=== PATIENT | male | born 1945 | race Caucasian/White ===

== ENCOUNTER 2017-02-27 20:34 | Emergency (ER) | payer MEDICARE, OTHER ==
[~2017-02-27] VITALS: Ht 170.2 cm; Wt 115.7 kg
[~2017-02-27 20:34] MED LIST: APIX5TAB PO; CARV12.5 PO; CITA20 PO; DILT360C12 PO; FLUT1INH; FURO20 PO; LIPI80TA16 PO; MONT10TA2 PO; MULT-65 PO; OMEG600C2 PO; POTA-267 PO; RAMI2.5C29 PO; VITA400C28 PO; WELLTAB39 PO
[2017-02-27 20:43] VITALS: BP 107/78; PULSE 100; RESP 16; TEMP 98.2; O2SAT 95
[2017-02-27] MEDS ORDERED: ATOR1TAB18 PO (21:05)
[2017-02-27] MEDS ORDERED: APIX5TAB PO (21:05)
[2017-02-27] MEDS ORDERED: WELLTAB39 PO (21:06)
[2017-02-27] MEDS ORDERED: CARV12.52 PO (21:07)
[2017-02-27] MEDS ORDERED: VITA100064 PO (21:07)
[2017-02-27] MEDS ORDERED: CITA20TA4 PO (21:08)
[2017-02-27] MEDS ORDERED: MONT10TA2 PO (21:09)
[2017-02-27] MEDS ORDERED: FURO1TAB62 PO (21:09)
[2017-02-27] MEDS ORDERED: DILT-48 PO (21:09)
[2017-02-27] MEDS ORDERED: MULTTAB12 PO (21:10)
[2017-02-27] MEDS ORDERED: POTA-163 PO (21:11)
[2017-02-27] MEDS ORDERED: OMEGCAP PO (21:11)
[2017-02-27] MEDS ORDERED: RAMI2.5C PO (21:12)
[2017-02-27] MEDS ORDERED: VENTAER INH (21:13)
[2017-02-27] MEDS ORDERED: ACETAMINOPHEN/HYDROcodone 325 MG/5 MG TAB PO ONE (21:15)
--- NOTE | 2017-02-27 21:27 | PD ---
HPI Chief Complaint: Injury Time Seen by Provider: 21:00 Travel History International Travel<30 days: Yes Contact w/Intl Traveler<30days: Yes Name of Country Traveled to: [place] Traveled to known affect area: No History of Present Illness HPI 71-year-old male complains of left knee pain. A wooden slab on a porch broke and he stepped through it and then a very heavy flowerpot when he at least 40 pounds fell onto the right medial knee causing pain. He was initially ambulatory. Ice was minimally helpful. He abraded the left forearm proximally along the ulnar aspect as well as the medial aspect of the left knee. The abrasions were irrigated at home. He reports the pain did not get better after icing and rest and he therefore came to the ER. No other injury to report. PFSH Past Medical History Hx Anticoagulant Therapy: Yes Asthma: Yes Atrial Fibrillation: Yes Anxiety: No Depression: Yes Cancer: No Cardiovascular Problems: Yes High Cholesterol: Yes COPD: Yes Endocrine: No Hypertension: Yes Immune Disorder: No Psychiatric: Yes Respiratory: Yes Tetanus Vaccination: < 5 Years Influenza Vaccination: Yes Past Surgical History Tonsillectomy: Yes Social History Alcohol Use: Yes (5 DRINKS WEEKLY) Tobacco Use: No Substance Use: No Allergies-Medications (Allergen,Severity, Reaction): Coded Allergies: No Known Allergies (Unverified , 02/10/15) Reported Meds & Prescriptions Reported Meds & Active Scripts Active Reported Ventolin Hfa 18 GM Inh (Albuterol Sulfate) 90 Mcg/Act Aer 2 Puff INH Q4H PRN Ramipril 2.5 Mg Cap 2.5 Mg PO DAILY Potassium Chloride ER (Potassium Chloride) 20 Meq Tab 20 Meq PO BID Burns-3 Fish Oil/Vitamin (Fish Oil-Cholecalciferol) 1,000-1,000 Mg Cap 1 Cap PO DAILY Multiple Vitamins (Multiple Vitamin) 1 Tab Tab 1 Tab PO DAILY Singulair (Montelukast Sodium) 10 Mg Tab 10 Mg PO HS Lasix (Furosemide) 20 Mg Tab 20 Mg PO DAILY Diltiazem ER 24 HR 240 Mg Caper 240 Mg PO DAILY Citalopram (Citalopram Hydrobromide) 20 Mg Tab 20 Mg PO DAILY Vitamin D (Cholecalciferol) 1,000 Unit Tab 2,000 Units PO DAILY Carvedilol 12.5 Mg Tab 12.5 Mg PO BID Wellbutrin Xl 24 HR (Bupropion HCl) 300 Mg Tab 300 Mg PO DAILY Atorvastatin (Atorvastatin Calcium) 80 Mg Tab 80 Mg PO HS Eliquis (Apixaban) 5 Mg Tab 5 Mg PO BID Review of Systems Except as stated in HPI: all other systems reviewed are Neg Physical Exam Narrative GENERAL: 71 yo M, WNWD, pleasant SKIN: Warm and dry. 1cm x 1cm abrasion L forearm proximally along ulnar aspect. Approx 3cm x 7 cm abrasion L medial knee. HEAD: Atraumatic. Normocephalic. EYES: Pupils equal and round. No scleral icterus. No injection or drainage. ENT: No nasal bleeding or discharge. Mucous membranes pink and moist. NECK: Trachea midline. No JVD. CARDIOVASCULAR: Regular rate and rhythm. RESPIRATORY: No accessory muscle use. Clear to auscultation. Breath sounds equal bilaterally. GASTROINTESTINAL: Abdomen soft, non-tender, nondistended. Hepatic and splenic margins not palpable. MUSCULOSKELETAL: Extremities without clubbing, cyanosis, or edema. TTP medial L knee. Minimal pain with ROM of L knee. 2+ DP bilaterally. NEUROLOGICAL: Awake and alert. No obvious cranial nerve deficits. Motor grossly within normal limits. Five out of 5 muscle strength in the arms and legs. Normal speech. PSYCHIATRIC: Appropriate mood and affect; insight and judgment normal. Data Data Last Documented VS Vital Signs Date Time Temp Pulse Resp B/P Pulse Ox O2 Delivery O2 Flow Rate FiO2 02/27/17 21:39 86 20 132/69 95 Room Air 02/27/17 20:43 98.2 VS reviewed Orders Knee, Complete (4vws) (02/27/17 21:06) Ice/Cold Pack (02/27/17 21:06) Splint Or Brace Apply/Monitor (02/27/17 21:06) Acetamin-Hydrocod 325-5 Mg (Lawrence 5-325 (02/27/17 21:15) MDM Medical Decision Making Medical Screen Exam Complete: Yes Emergency Medical Condition: Yes Medical Record Reviewed: Yes Differential Diagnosis effusion, fracture, dislocation Narrative Course Plain film right knee: no acute fracture The patient is resting comfortably and feels better, is alert and in no distress. The patients results and examination findings were discussed. The repeat examination is unremarkable and benign. The history, exam, diagnostic testing, and current condition do not suggest any significant pathology to warrant further testing, continued ED treatment, admission, or surgical evaluation at this point. The vital signs have been stable. The patient does not have uncontrollable pain, intractable vomiting, or other significant symptoms. The patient's condition is stable and appropriate for discharge. The patient will pursue further outpatient evaluation with a primary care physician or other designated or consulting physician as indicated in the discharge instructions. The patient expressed understanding and was agreeable with this plan. Diagnosis Primary Impression: Fall Qualified Code: W19.XXXA - Fall, initial encounter Additional Impressions: Knee pain, right Qualified Code: M25.561 - Acute pain of right knee Abrasions of multiple sites Referrals: Russ Bueno MD 2 days Additional Instructions: You have a choice when it comes to health care, and we are glad that you chose [facility]. Hopefully, we have met your expectations on today's visit. You are welcome to return to [facility] at any time, as we are committed to meeting the health care needs of our community. Med/Other Pt SpecificInfo: Prescription(s) given Disposition: 01 DISCHARGE HOME Condition: Stable Chaz Schwarz MD February 27, 2017 21:27
[2017-02-27 21:39] VITALS: BP 132/69; PULSE 86; RESP 20; O2SAT 95
--- NOTE | 2017-02-27 22:03 | RADHPO ---
EXAM DATE/TIME: 02/27/2017 21:30 [facility] COMPARISON: No previous studies available for comparison. INDICATIONS : Fall. Left knee pain. MEDICAL HISTORY : None. SURGICAL HISTORY : None. ENCOUNTER: Initial ACUITY: 1 day PAIN SCORE: 6/10 LOCATION: Right lateral FINDINGS: There is moderate osteoarthritis of the medial joint compartment. No fracture or subluxation. No sign ificant joint effusion. CONCLUSION: 1. Moderate osteoarthritis of the medial joint. No acute bony abnormalities. Olaf Owens MD on February 27, 2017 at 21:59 Board Certified Radiologist. This report was verified electronically.
[2017-02-27 22:08] VITALS: RESP 18
== END 2017-02-27 22:16 | disposition home or self-care (01) ==
LOC: PHED 20:34
DX: M25.561 Pain in right knee (principal); S50.812A Abrasion of left forearm, initial encounter; S80.212A Abrasion, left knee, initial encounter; J45.909 Unspecified asthma, uncomplicated; I48.91 Unspecified atrial fibrillation; E78.00 Pure hypercholesterolemia, unspecified; J44.9 Chronic obstructive pulmonary disease, unspecified; I10 Essential (primary) hypertension; Z79.01 Long term (current) use of anticoagulants; W13.3XXA Fall through floor, initial encounter; Y93.9 Activity, unspecified; Y92.89 Other specified places as the place of occurrence of the external cause; Y99.8 Other external cause status
CPT/HCPCS: 73564; 99283; L1830

== ENCOUNTER 2018-08-28 10:39 | Inpatient (IN) ==
[2018-08-28] MEDS ORDERED: Aspirin 325 MG Tablet PO ONE (12:55)
[2018-08-28 13:12] LABS: Baso # (Auto) 0.1 th/mm3 (0.0-0.2); Baso % (Auto) 0.7 % (0.0-2.0); Eos # (Auto) 0.1 th/mm3 (0.0-0.4); Eos % (Auto) 1.4 % (0.0-4.0); Hematocrit 44.3 % (39.0-51.0); Hemoglobin 14.6 gm/dL (13.0-17.0); Lymph # (Auto) 1.9 th/mm3 (1.0-4.8); Lymph % (Auto) 19.7 % (9.0-44.0); Mean Corpuscular Hemoglobin 30.9 pg (27.0-34.0); Mean Corpuscular Volume 93.6 fL (80.0-100.0); Mean Platelet Volume 8.5 fL (7.0-11.0); Mono # (Auto) 0.8 th/mm3 (0.0-0.9); Mono % (Auto) 8.3 % (0.0-8.0); Neut # (Auto) 6.5 th/mm3 (1.8-7.7); Neut % (Auto) 69.9 % (16.0-70.0); Platelet Count 180 th/mm3 (150-450); Red Blood Count 4.74 mil/mm3 (4.50-5.90); White Blood Count 9.4 th/mm3 (4.0-11.0)
--- NOTE | 2018-08-28 13:19 | ED ---
HPI General Chief Complaint: Chest Pain Stated Complaint: chest pain Time Seen by Provider: 08/28/18 12:43 History of Present Illness HPI narrative: Patient has a history of asthma, CHF, high blood pressure, COPD, A. fib, and hyperlipidemia presents with lower left-sided chest pain. Pain started earlier this morning, intermittent, minutes in duration, similar pain in the past and he states he was diagnosed with A. fib, and the pain radiates to his neck. Reports having a dizzy spell and achy joints that feels like the flu despite having flu shot this year. He reports body aches and productive cough with clear phlegm, shortness of breath with the chest pain, he denies fever or chills or nausea or vomiting or recent travel or abdominal pain. He is on Eliquis. Related Data Home Medications Medication Instructions Recorded Confirmed Multi Vitamin 1 tab PO DAILY 05/19/18 08/28/18 albuterol sulfate [Ventolin HFA] 18 mg INHALATION PRN PRN 05/19/18 08/28/18 apixaban [Eliquis] 5 mg PO BID 05/19/18 08/28/18 atorvastatin 80 mg PO DAILY 05/19/18 08/28/18 bupropion HCl 300 mg PO QAM 05/19/18 08/28/18 carvedilol 12.5 mg PO BID 05/19/18 08/28/18 citalopram 20 mg PO DAILY 05/19/18 08/28/18 diltiazem HCl [DILT-XR] 240 mg PO DAILY 05/19/18 08/28/18 furosemide 20 mg PO DAILY 05/19/18 08/28/18 montelukast 10 mg PO QPM 05/19/18 08/28/18 omega-3 fatty acids-fish oil [Fish 2,400 mg PO DAILY 05/19/18 08/28/18 Oil] potassium chloride 20 meq PO BID 05/19/18 08/28/18 ramipril 2.5 mg PO BID 05/19/18 08/28/18 Brioellipta Inh 08/28/18 calcium citrate-vitamin D3 1 tab PO DAILY 08/28/18 08/28/18 Allergies Allergy/AdvReac Type Severity Reaction Status Date / Time No Known Allergies Allergy Verified 08/28/18 10:50 Review of Systems ROS: all other systems reviewed are negative [facility] Social History Social History Substance History: Active Abuse Smoking Status: Former smoker How Often Do You Have a Drink Containing Alcohol: 4 or more times a week Recent Travel in [facility] within the Last 8 Weeks: No Recent Out of Country Travel within the Last 8 Weeks: No Substance Abuse Detail Alcohol: Substance Use Status: Active Route Used Substance Abuse: By Mouth Substance Frequency: Mixed drinks, states usually one per night Immunization History Tetanus Immunization: <5 Years Exam Narrative Exam Narrative: GENERAL: No acute distress. SKIN: Focused skin assessment warm/dry. HEAD: Atraumatic. Normocephalic. EYES: Pupils equal and round. No scleral icterus. No injection or drainage. ENT: No nasal bleeding or discharge. Mucous membranes pink and moist. NECK: Trachea midline. No JVD. CARDIOVASCULAR: Irregularly irregular RESPIRATORY: No accessory muscle use. Clear to auscultation. Breath sounds equal bilaterally. GASTROINTESTINAL: Abdomen soft, non-tender, nondistended. Hepatic and splenic margins not palpable. MUSCULOSKELETAL: No obvious deformities. No clubbing. No cyanosis. No edema. NEUROLOGICAL: Awake and alert. No obvious cranial nerve deficits. Motor grossly within normal limits. Normal speech. PSYCHIATRIC: Appropriate mood and affect; insight and judgment normal. Course Initial Documented Vital Signs Temperature 98.7 F 08/28/18 10:46 Pulse Rate 89 08/28/18 10:46 Respiratory Rate 18 08/28/18 10:46 Blood Pressure 135/78 08/28/18 10:46 Pulse Oximetry 95 08/28/18 10:46 Last Documented Vital Signs Temperature 98.7 F 08/28/18 10:46 Pulse Rate 86 08/28/18 12:40 Respiratory Rate 16 08/28/18 12:40 Blood Pressure 140/91 H 08/28/18 12:40 Pulse Oximetry 94 L 08/28/18 12:40 Medical Decision Making MDM Narrative Medical decision making narrative: Patient presents to the emergency department reporting left-sided chest pain. Patient placed on pvc monitor, continuous pulse ox, IV access obtained. Chest x-ray, labs, EKG, aspirin 325 mg p.o. ordered. 1536: Patient's labs show slightly increase BNP. Q waves in aVF and III old per admit hospitalist. Will admit for chest pain obs. HEART score approx 6. states last stress test she thinks was January 2015. He has been admitted to hospitalist for further eval and management. Medical Screen Exam Complete: Yes Emergency Medical Condition: Yes Lab Data Result diagrams: 08/28/18 13:00 08/28/18 13:00 Lab Results 08/28/18 08/28/18 08/28/18 Range/Units 13:00 13:00 13:00 CBC w Diff Auto diff final WBC 9.4 (4.0-11.0) th/mm3 RBC 4.74 (4.50-5.90) mil/mm3 Hgb 14.6 (13.0-17.0) gm/dL Hct 44.3 (39.0-51.0) % MCV 93.6 (80.0-100.0) fL MCH 30.9 (27.0-34.0) pg MCHC 33.0 (32.0-36.0) % RDW 13.0 (11.6-17.2) % Plt Count 180 (150-450) th/mm3 MPV 8.5 (7.0-11.0) fL Neut % (Auto) 69.9 (16.0-70.0) % Lymph % (Auto) 19.7 (9.0-44.0) % Gregg % (Auto) 8.3 H (0.0-8.0) % Eos % (Auto) 1.4 (0.0-4.0) % Baso % (Auto) 0.7 (0.0-2.0) % Neut # (Auto) 6.5 (1.8-7.7) th/mm3 Lymph # (Auto) 1.9 (1.0-4.8) th/mm3 Gregg # (Auto) 0.8 (0.0-0.9) th/mm3 Eos # (Auto) 0.1 (0.0-0.4) th/mm3 Baso # (Auto) 0.1 (0.0-0.2) th/mm3 WBC Differential . Differential Comment . PT 12.0 H (9.8-11.6) sec INR 1.2 Ratio APTT 30.3 (23.4-31.7) sec Sodium 138 (136-145) meq/L Potassium 4.2 (3.5-5.1) meq/L Chloride 103 (98-107) meq/L Carbon Dioxide 28.7 (21.0-32.0) meq/L Anion Gap 6 (5-15) meq/L BUN 12 (7-18) mg/dL Creatinine 0.85 (0.60-1.30) mg/dL Estimated GFR 89 (>89) mL/min Random Glucose 169 H (74-106) mg/dL Calcium 9.1 (8.5-10.1) mg/dL Magnesium 2.0 (1.5-2.5) mg/dL Total Bilirubin 0.6 (0.2-1.0) mg/dL AST 13 L (15-37) U/L ALT 21 (12-78) U/L Alkaline Phosphatase 117 (45-117) U/L Troponin I (0.02-0.05) ng/mL B-Natriuretic Peptide (0-100) pg/mL Total Protein 7.6 (6.4-8.2) g/dL Albumin 3.1 L (3.4-5.0) g/dL 08/28/18 08/28/18 Range/Units 13:00 13:00 CBC w Diff WBC (4.0-11.0) th/mm3 RBC (4.50-5.90) mil/mm3 Hgb (13.0-17.0) gm/dL Hct (39.0-51.0) % MCV (80.0-100.0) fL MCH (27.0-34.0) pg MCHC (32.0-36.0) % RDW (11.6-17.2) % Plt Count (150-450) th/mm3 MPV (7.0-11.0) fL Neut % (Auto) (16.0-70.0) % Lymph % (Auto) (9.0-44.0) % Gregg % (Auto) (0.0-8.0) % Eos % (Auto) (0.0-4.0) % Baso % (Auto) (0.0-2.0) % Neut # (Auto) (1.8-7.7) th/mm3 Lymph # (Auto) (1.0-4.8) th/mm3 Gregg # (Auto) (0.0-0.9) th/mm3 Eos # (Auto) (0.0-0.4) th/mm3 Baso # (Auto) (0.0-0.2) th/mm3 WBC Differential Differential Comment PT (9.8-11.6) sec INR Ratio APTT (23.4-31.7) sec Sodium (136-145) meq/L Potassium (3.5-5.1) meq/L Chloride (98-107) meq/L Carbon Dioxide (21.0-32.0) meq/L Anion Gap (5-15) meq/L BUN (7-18) mg/dL Creatinine (0.60-1.30) mg/dL Estimated GFR (>89) mL/min Random Glucose (74-106) mg/dL Calcium (8.5-10.1) mg/dL Magnesium (1.5-2.5) mg/dL Total Bilirubin (0.2-1.0) mg/dL AST (15-37) U/L ALT (12-78) U/L Alkaline Phosphatase (45-117) U/L Troponin I Less than 0.02 L (0.02-0.05) ng/mL B-Natriuretic Peptide 203 H (0-100) pg/mL Total Protein (6.4-8.2) g/dL Albumin (3.4-5.0) g/dL Imaging Data Radiologist's impression: Chest X-Ray 08/28/18 12:53 CONCLUSION: Right basilar subsegmental atelectasis. ECG Data Attestation: I personally reviewed and interpreted this ECG as follows: (A. fib , rate 93, left axis deviation, QTC 433, Q wave in III and AVF (old per hospitalist as I'm unable to view)) Discharge Plan Discharge Disposition Patient Disposition: 30 Still Patient Discharge Condition Condition: Stable Discharge Details Diagnosis: Chest pain Physicians Team ED Provider: Hallie Ralph Primary Care Provider: Maday Us Rxs /Orders / Referrals /Forms Prescriptions: No Action Brioellipta Inh RF: 0 calcium citrate-vitamin D3 200 mg calcium -250 unit Tablet 1 tab PO DAILY RF: 0 atorvastatin 80 mg Tablet 80 mg PO DAILY RF: 0 carvedilol 12.5 mg Tablet 12.5 mg PO BID RF: 0 diltiazem HCl [DILT-XR] 240 mg Capsule,Ext.Rel 24h Degradable 240 mg PO DAILY RF: 0 citalopram 20 mg Tablet 20 mg PO DAILY RF: 0 ramipril 2.5 mg Capsule 2.5 mg PO BID RF: 0 montelukast 10 mg Tablet 10 mg PO QPM RF: 0 furosemide 20 mg Tablet 20 mg PO DAILY RF: 0 albuterol sulfate [Ventolin HFA] 90 mcg/actuation Hfa Aerosol Inhaler 18 mg Inhalation PRN PRN (Reason: Shortness Of Breath) RF: 0 bupropion HCl 300 mg Tablet Extended Release 24 Hr 300 mg PO QAM RF: 0 omega-3 fatty acids-fish oil [Fish Oil] 360-1,200 mg Capsule 2,400 mg PO DAILY RF: 0 apixaban [Eliquis] 5 mg Tablet 5 mg PO BID RF: 0 potassium chloride 20 mEq Tablet Extended Release 20 meq PO BID RF: 0 Multi Vitamin 1 tab PO DAILY RF: 0 Discharge Instructions Patient Printed Instructions: Chest Pain (ED) Discharge Interventions Interventions: Vital Signs Last Done: 08/28/18 12:40 Status ED Status: With Doctor
[2018-08-28 13:20] LABS: Chloride 103 meq/L (98-107); Potassium 4.2 meq/L (3.5-5.1); Sodium 138 meq/L (136-145)
--- NOTE | 2018-08-28 13:20 | XR ---
EXAM DATE: 08/28/2018 1:17 PM EST AGE/SEX: 73 years / Male INDICATIONS: Cough and chest pains. CLINICAL DATA: This is the patient's initial encounter. Patient reports that signs and symptoms have been present for 3 days and indicates a pain score of 7/10. MEDICAL/SURGICAL HISTORY: Hypertension. Chronic obstructive pulmonary disease. Congestive hea rt failure. Afib. None. COMPARISON: [facility], CHEST SINGLE AP, 02/10/2015. . FINDINGS: A single AP view of the chest demonstrates right basilar linear density without evidence of mass, inf iltrate or effusion. The cardiomediastinal contours are unremarkable. Osseous structures are intact . CONCLUSION: Right basilar subsegmental atelectasis. Electronically signed by: Bj Ford MD 08/28/2018 1:19 PM EST
[2018-08-28 13:22] LABS: Calcium 9.1 mg/dL (8.5-10.1)
[2018-08-28 13:23] LABS: Activated Partial Thrombo Time 30.3 sec (23.4-31.7); Albumin 3.1 g/dL (3.4-5.0); Anion Gap 6 meq/L (5-15); Blood Urea Nitrogen 12 mg/dL (7-18); Carbon Dioxide 28.7 meq/L (21.0-32.0); Glucose,Random 169 mg/dL (74-106); INR 1.2 Ratio
[2018-08-28 13:26] LABS: Alanine Aminotransferase 21 U/L (12-78); Aspartate Aminotransferase 13 U/L (15-37); Glomerular Filtration Rate 89 mL/min (>89)
[2018-08-28 13:28] LABS: Total Protein 7.6 g/dL (6.4-8.2)
[2018-08-28 13:29] LABS: Alkaline Phosphatase 117 U/L (45-117)
[2018-08-28] MEDS ORDERED: Acetaminophen 500 MG Tablet PO PRN (15:36)
[2018-08-28] MEDS ORDERED: Morphine Inj 4 MG/ML Vial IV.PUSH PRN (15:36)
[2018-08-28] MEDS ORDERED: Benzonatate 100 MG Capsule PO PRN (15:37)
--- NOTE | 2018-08-28 15:44 | ECG ---
Date Performed: 08/28/2018 Time Performed: 10:46:18 PTAGE: 73 years EKG: ATRIAL FIBRILLATION POSSIBLE INFERIOR MYOCARDIAL INFARCTION ABNORMAL ECG Compared to prior electrocardiogram, Atrial fibrillation has replaced Sinus rhythm . PREVIOUS TRACING : 02/10/2015 21.35 DOCTOR: Catalino Mccabe Interpretating Date/Time 08/28/2018 15:44:28
[2018-08-28 18:15] LABS: Creatine Kinase 42 U/L (39-308)
[2018-08-28] MEDS: Montelukast 10 MG Tablet PO SCH (18:22)
[2018-08-28 18:29] LABS: Bilirubin,Urine Negative (Negative); Clarity,Urine Turbid (Clear); Glucose,Urine (UA) 250 mg/dL (Negative); Leukocyte Esterase,Urine Negative (Negative); Nitrite,Urine Negative (Negative)
[2018-08-28 18:30] LABS: Color,Urine Red (Yellw/Straw)
[2018-08-28 18:33] LABS: Bacteria,Urine Few /hpf; RBC,Urine Innumerable /hpf (0-3); WBC,Urine 0-5 /hpf (0-5)
[2018-08-28] MEDS ORDERED: LORazepam 1 MG Tablet PO PRN (18:44)
[2018-08-28] MEDS ORDERED: Haloperidol Inj 5 MG/ML Ampul IV.PUSH PRN (18:44)
--- NOTE | 2018-08-28 19:00 | ECG ---
Date Performed: 08/28/2018 Time Performed: 18:17:55 PTAGE: 73 years EKG: ATRIAL FIBRILLATION WITH ABERRANT CONDUCTION OR VENTRICULAR PREMATURE COMPLEXES MARKED LEFT AXIS DEVIATION ABNORMAL ECG Compared to prior electrocardiogram, Premature ventricular contractions are now present . PREVIOUS TRACING : 08/28/2018 10.46 DOCTOR: Catalino Mccabe Interpretating Date/Time 08/28/2018 18:59:34
--- NOTE | 2018-08-28 19:05 | P.HP ---
History of Present Illness Primary Care Physician: Maday Us MD Chief Complaint: Chest pain History of Present Illness: This is a 73-year-old male with a history of asthma, COPD, congestive heart failure, hypertension, COPD, A. fib and hyperlipidemia. He presents to the emergency department because of chest pain that started this morning. He describes an intermittent moderate left-sided sharp nonexertional chest pain radiating to his neck and left lower extremity. Denies diaphoresis, nausea and palpitations. He also noted that his blood pressure was elevated which is usually under control. Patient also has been having flulike symptoms with dizzy spells, achy joints, productive cough with clear phlegm and shortness of breath with wheezing. Flu screen was negative in the ED. He reports that pain was not initially pleuritic but now it is worse when he coughs. CHEST Xray independently reviewed by me with no acute cardiopulmonary disease except for right subsegmental atelectasis. EKG independently reviewed by me with atrial fibrillation with controlled ventricular response and Q waves in 3 and aVL unchanged from previous. Initial CK and troponin unremarkable. Patient has been started on aspirin in addition to Eliquis. While in the hall, patient developed gross hematuria with no blood clots. Has pain in his penile area but no abdominal pain. Denies history of bleeding or stones. Intentional weight loss with good appetite. All other systems reviewed negative Review of Systems All other systems reviewed negative except as stated in HPI PMFSH - History History Provided By: Patient, Family Member - Medical History Medical History: Medical History (Last Reviewed 08/28/18 @ 18:59 by Michael Boucher MD) Asthma Atrial fibrillation CHF (congestive heart failure) COPD (chronic obstructive pulmonary disease) Depression Hyperlipidemia Hypertension - Surgical History Surgical History: Surgical History (Last Reviewed 08/28/18 @ 18:59 by Michael Boucher MD) Hx of tonsillectomy - Family History Family History: Family History (Last Updated 08/28/18 @ 18:59 by Michael Boucher MD) Other No pertinent family history - Social History I have reviewed the patient's Social History: Yes - Tobacco History Second Hand Smoke Exposure: No Tobacco Use In Past 30 Days: No Smoking Status: Former smoker Tobacco Type: Cigarettes - Alcohol History How Often Do You Have a Drink Containing Alcohol: 4 or more times a week - Substance Use History Substance History: No History of Abuse - Substance Use Type Alcohol Status: Active Route Used: By Mouth Frequency: Mixed drinks, states usually one per night - Travel History Recent Travel in the [place] Within the Last 8 Weeks: No Recent Travel Out of the Country Within the Last 8 Weeks: No - Immunization History Tetanus Immunization: <5 Years Hx Influenza Vaccine This Season: Yes Medications and Allergies Active Medications: Active Medications Acetaminophen (Tylenol) 500 mg PO Q4H PRN PRN Reason: HEADACHE Hydrocodone Bitart/Acetaminophen ([place] 7.5/325) 1 tab PO Q4H PRN PRN Reason: PAIN SCALE 1 TO 7 Albuterol (Ventolin Hfa Inh) 2 puff INH QID PRN PRN Reason: SHORTNESS OF BREATH/WHEEZING Atorvastatin Calcium (Lipitor) 80 mg PO DAILY NUPUR Benzonatate (Tessalon Perles) 200 mg PO Q8H PRN PRN Reason: COUGH Bupropion HCl (Wellbutrin Sr) 150 mg PO BID [facility] Carvedilol (Coreg) 12.5 mg PO BID [facility] Citalopram Hydrobromide (Celexa) 20 mg PO DAILY [facility] Enalaprilat (Vasotec Inj) 1.25 mg IV.PUSH Q6H PRN PRN Reason: SEE LABEL COMMENTS Furosemide (Lasix) 20 mg PO DAILY NUPUR Guaifenesin (Mucinex Er) 600 mg PO BID [facility] Montelukast Sodium (Singulair) 10 mg PO QPM [facility] Last Admin: 08/28/18 18:22 Dose: 10 mg Morphine Sulfate (Morphine Inj) 2 mg IV.PUSH Q4H PRN PRN Reason: PAIN SCALE 8 TO 10 Nitroglycerin (Nitrostat Sl) 0.4 mg SL Q5M PRN PRN Reason: CHEST PAIN Ondansetron HCl (Zofran Inj) 4 mg IV.PUSH Q6H PRN PRN Reason: NAUSEA Potassium Chloride (K-Dur) 20 meq PO BID NUPUR Ramipril (Altace) 2.5 mg PO BID [facility] Sodium Chloride (Ns Flush) 2 ml IV.FLUSH BID NUPUR Sodium Chloride (Ns Flush) 2 ml IV.FLUSH PRN PRN PRN Reason: FLUSH AFTER USING IV ACCESS Allergies Allergy/AdvReac Type Severity Reaction Status Date / Time No Known Allergies Allergy Verified 08/28/18 10:50 Home Medications Medication Instructions Recorded Confirmed Type Multi Vitamin 1 tab PO DAILY 05/19/18 08/28/18 History albuterol sulfate [Ventolin HFA] 18 mg INHALATION PRN PRN 05/19/18 08/28/18 History apixaban [Eliquis] 5 mg PO BID 05/19/18 08/28/18 History atorvastatin 80 mg PO DAILY 05/19/18 08/28/18 History bupropion HCl 300 mg PO QAM 05/19/18 08/28/18 History carvedilol 12.5 mg PO BID 05/19/18 08/28/18 History citalopram 20 mg PO DAILY 05/19/18 08/28/18 History diltiazem HCl [DILT-XR] 240 mg PO DAILY 05/19/18 08/28/18 History furosemide 20 mg PO DAILY 05/19/18 08/28/18 History montelukast 10 mg PO QPM 05/19/18 08/28/18 History omega-3 fatty acids-fish oil [Fish 2,400 mg PO DAILY 05/19/18 08/28/18 History Oil] potassium chloride 20 meq PO BID 05/19/18 08/28/18 History ramipril 2.5 mg PO BID 05/19/18 08/28/18 History Brioellipta Inh 08/28/18 History calcium citrate-vitamin D3 1 tab PO DAILY 08/28/18 08/28/18 History Exam Vital signs: Vital Signs 08/28/18 10:46 08/28/18 12:40 08/28/18 16:21 Temperature 98.7 F Pulse Rate 89 86 70 Respiratory Rate 18 16 Blood Pressure 135/78 140/91 H 143/91 H Pulse Oximetry 95 94 L 95 08/28/18 17:16 08/28/18 17:51 08/28/18 18:24 Temperature Pulse Rate 84 Respiratory Rate Blood Pressure 142/96 H Pulse Oximetry 96 Intake & Output 08/27/18 08/28/18 08/28/18 18:59 06:59 18:59 Weight 104.8 kg Other: Date of Last Bowel Movement 08/28/18 Weight On Admission 112.8 kg Narrative: GENERAL: Well-developed and well-nourished in no distress SKIN: Warm and dry. HEAD: Atraumatic. Normocephalic. EYES: Pupils equal and round. No scleral icterus. No injection or drainage. ENT: No nasal bleeding or discharge. Mucous membranes pink and moist. NECK: Trachea midline. No JVD. CARDIOVASCULAR: Irregularly irregular RESPIRATORY: No accessory muscle use. Scattered expiratory wheezes. Breath sounds equal bilaterally. GASTROINTESTINAL: Abdomen soft, non-tender, nondistended. no active bleed. No mass noted MUSCULOSKELETAL: Extremities without clubbing, cyanosis, or edema. No obvious deformities. No CVA tenderness NEUROLOGICAL: Awake and alert. No obvious cranial nerve deficits. Motor grossly within normal limits. Five out of 5 muscle strength in the arms and legs. Normal speech. PSYCHIATRIC: Appropriate mood and affect; insight and judgment normal. Results - Labs CBC & Chem 7: 08/28/18 13:00 08/28/18 13:00 Labs: Laboratory Results - last 24 hr 08/28/18 08/28/18 08/28/18 13:00 13:00 13:00 CBC w Diff Auto diff final WBC 9.4 RBC 4.74 Hgb 14.6 Hct 44.3 MCV 93.6 MCH 30.9 MCHC 33.0 RDW 13.0 Plt Count 180 MPV 8.5 Neut % (Auto) 69.9 Lymph % (Auto) 19.7 [place] % (Auto) 8.3 H Eos % (Auto) 1.4 Baso % (Auto) 0.7 Neut # (Auto) 6.5 Lymph # (Auto) 1.9 [place] # (Auto) 0.8 Eos # (Auto) 0.1 Baso # (Auto) 0.1 WBC Differential . Differential Comment . PT 12.0 H INR 1.2 APTT 30.3 Sodium 138 Potassium 4.2 Chloride 103 Carbon Dioxide 28.7 Anion Gap 6 BUN 12 Creatinine 0.85 Estimated GFR 89 Random Glucose 169 H Calcium 9.1 Magnesium 2.0 Total Bilirubin 0.6 AST 13 L ALT 21 Alkaline Phosphatase 117 Total Creatine Kinase Troponin I B-Natriuretic Peptide Total Protein 7.6 Albumin 3.1 L Urine Color Urine Clarity Urine pH Ur Specific [place] Urine Protein Urine Glucose (UA) Urine Ketones Urine Occult Blood Urine Nitrate Urine Bilirubin Urine Urobilinogen Ur Leukocyte Esterase Urine RBC Urine WBC Urine Bacteria Micro UA Comment Ur Microscopic Review Urine Culture Comments 08/28/18 08/28/18 08/28/18 13:00 13:00 17:30 CBC w Diff WBC RBC Hgb Hct MCV MCH MCHC RDW Plt Count MPV Neut % (Auto) Lymph % (Auto) [place] % (Auto) Eos % (Auto) Baso % (Auto) Neut # (Auto) Lymph # (Auto) [place] # (Auto) Eos # (Auto) Baso # (Auto) WBC Differential Differential Comment PT INR APTT Sodium Potassium Chloride Carbon Dioxide Anion Gap BUN Creatinine Estimated GFR Random Glucose Calcium Magnesium Total Bilirubin AST ALT Alkaline Phosphatase Total Creatine Kinase 42 Troponin I Less than 0.02 L Less than 0.02 L B-Natriuretic Peptide 203 H Total Protein Albumin Urine Color Urine Clarity Urine pH Ur Specific [place] Urine Protein Urine Glucose (UA) Urine Ketones Urine Occult Blood Urine Nitrate Urine Bilirubin Urine Urobilinogen Ur Leukocyte Esterase Urine RBC Urine WBC Urine Bacteria Micro UA Comment Ur Microscopic Review Urine Culture Comments 08/28/18 18:10 CBC w Diff WBC RBC Hgb Hct MCV MCH MCHC RDW Plt Count MPV Neut % (Auto) Lymph % (Auto) [place] % (Auto) Eos % (Auto) Baso % (Auto) Neut # (Auto) Lymph # (Auto) [place] # (Auto) Eos # (Auto) Baso # (Auto) WBC Differential Differential Comment PT INR APTT Sodium Potassium Chloride Carbon Dioxide Anion Gap BUN Creatinine Estimated GFR Random Glucose Calcium Magnesium Total Bilirubin AST ALT Alkaline Phosphatase Total Creatine Kinase Troponin I B-Natriuretic Peptide Total Protein Albumin Urine Color Red H Urine Clarity Turbid H Urine pH 7.0 Ur Specific [place] 1.020 Urine Protein 300 or greater H Urine Glucose (UA) 250 H Urine Ketones Negative Urine Occult Blood Large H Urine Nitrate Negative Urine Bilirubin Negative Urine Urobilinogen 2.0 H Ur Leukocyte Esterase Negative Urine RBC Innumerable H Urine WBC 0-5 Urine Bacteria Few H Micro UA Comment Culture not ind Ur Microscopic Review Microscopic reviewed Urine Culture Comments Culture not ind - Imaging Impressions Chest X-Ray 08/28/18 12:53 CONCLUSION: Right basilar subsegmental atelectasis. Caprini VTE Risk Assessment Caprini VTE Risk Assessment: Moderate/High Risk (score >= 2) Caprini Risk Assessment Model: Point Value = 1 Point Value = 2 Point Value = 3 Point Value = 5 Age 41-60 Minor surgery BMI > 25 kg/m2 Swollen legs Varicose veins or History of unexplained or recurrent spontaneous Oral contraceptives or hormone replacement Sepsis (< 1 month) Serious lung disease, including pneumonia (< 1 month) Abnormal pulmonary function Acute myocardial infarction Congestive heart failure (< 1 month) History of inflammatory bowel disease Medical patient at bed rest Age 61-74 Arthroscopic surgery Major open surgery (> 45 min) Laparoscopic surgery (> 45 min) Malignancy Confined to bed (> 72 hours) Immobilizing plaster cast Central venous access Age >= 75 History of VTE Family history of VTE Factor V Leiden Prothrombin 42176C Lupus anticoagulant Anticardiolipin antibodies Elevated serum homocysteine Heparin-induced thrombocytopenia Other congenital or acquired thrombophilia Stroke (< 1 month) Elective arthroplasty Hip, pelvis, or leg fracture Acute spinal cord injury (< 1 month) Prophylaxis Regimen: Total Risk Factor Score Risk Level Prophylaxis Regimen 0-1 Low Early ambulation 2 Moderate Order ONE of the following: *Sequential Compression Device (SCD) *Heparin 5000 units SQ BID 3-4 Higher Order ONE of the following medications: *Heparin 5000 units SQ TID *Enoxaparin/Lovenox 40 mg SQ daily (WT < 150 kg, CrCl > 30 mL/min) *Enoxaparin/Lovenox 30 mg SQ daily (WT < 150 kg, CrCl > 10-29 mL/min) *Enoxaparin/Lovenox 30 mg SQ BID (WT < 150 kg, CrCl > 30 mL/min) AND/OR *Sequential Compression Device (SCD) 5 or more Highest Order ONE of the following medications: *Heparin 5000 units SQ TID (Preferred with Epidurals) *Enoxaparin/Lovenox 40 mg SQ daily (WT < 150 kg, CrCl > 30 mL/min) *Enoxaparin/Lovenox 30 mg SQ daily (WT < 150 kg, CrCl > 10-29 mL/min) *Enoxaparin/Lovenox 30 mg SQ BID (WT < 150 kg, CrCl > 30 mL/min) AND *Sequential Compression Device (SCD) Assessment and Plan - Plan This is a 73-year-old male with a history of asthma, COPD, congestive heart failure, hypertension, COPD, A. fib and hyperlipidemia. Complaints of nonexertional left-sided pain. Chest x-ray with no acute cardiopulmonary disease. EKG with no ST elevation. BP mildly elevated. Patient also with expiratory wheezes with respiratory symptoms. Also developed gross hematuria on Eliquis and aspirin Chest pain, this is atypical. Will trend cardiac enzymes and obtain Lexiscan if he rules out. COPD exacerbation likely etiology of chest pain. Start scheduled nebulization, IV steroids and Levaquin. Gross hematuria on Eliquis and aspirin both on hold at this time (patient aware risk of CVA off anticoagulants). Obtain CT of the abdomen pelvis, start CBI if patient develops clots and obtain consult Uncontrolled hypertension. Continue home medications of Coreg, ramipril and Lasix. As needed Vasotec. DVT prophylaxis with SCD and early ambulation
[2018-08-28] MEDS ORDERED: Diatrizoate Meglum/Diatrizoate Sod Liq 9 ML UDC PO ONE (19:15)
[2018-08-28] MEDS: levoFLOXacin 750 MG Tablet PO SCH (19:53)
[2018-08-28] MEDS: MethylPREDNISolone Sod Succinate Inj 125 MG/2 ML Vial IV.PUSH SCH (19:54)
[2018-08-28] MEDS: Carvedilol 12.5 MG Tablet PO SCH (20:38)
[2018-08-28] MEDS: guaiFENesin 600 MG ER Tablet PO SCH (20:38)
[2018-08-28] MEDS: Ramipril 2.5 MG Capsule PO SCH (20:41)
[2018-08-28 21:25] LABS: Creatine Kinase 45 U/L (39-308)
--- NOTE | 2018-08-29 00:18 | CT ---
EXAM DATE: 08/28/2018 11:43 PM EST AGE/SEX: 73 years / Male INDICATIONS: Hematuria. CLINICAL DATA: This is the patient's initial encounter. Patient reports that signs and symptoms have been present for 1 day and indicates a pain score of 0/10. MEDICAL/SURGICAL HISTORY: Chronic obstructive pulmonary disease. Hypertension. None. ORAL CONTRAST: Prescribed oral contrast ingested. RADIATION DOSE: 21.66 CTDI (mGy) COMPARISON: No prior exams available for comparison. TECHNIQUE: Multiple contiguous axial images were obtained through the abdomen and pelvis following b olus infusion of 100 ml Omnipaque 350 (iohexol) nonionic water-soluble contrast as a single exam do se. Prescribed oral contrast ingested. Using automated exposure control and adjustment of the mA and /or kV according to patient size, radiation dose was kept as low as reasonably achievable to obtain o ptimal diagnostic quality images. DICOM format image data is available electronically for review and comparison. FINDINGS: Lower Lungs: 7 mm nodule in the posterior left costophrenic sulcus Liver: 3.4 cm mass in the posterior segment of the right lobe of the liver which looks like a meningi vahid. No other focal liver findings. No biliary ductal dilatation. Spleen: Homogeneous density without enlargement. Pancreas: Unremarkable without mass or calcification. Kidneys: 5 mm nonobstructing calculus in the lower pole collecting system of the right kidney. Small exophytic cyst arising from the posterior lateral apex of the right kidney. Left kidney is unremarka ble. Adrenal Glands: Unremarkable. Aorta: The aorta and proximal iliac vessels are grossly unremarkable without aneurysmal dilation. Bowel/Mesentery: The bowel loops are grossly unremarkable. The cecum and sigmoid colon have a normal configuration. Abdominal Wall: Small fat-containing umbilical hernia. Retroperitoneum: No evidence of adenopathy in the retrocrural, para-aortic, or deep pelvic regions. Bladder: Bladder is minimally distended. There appears to be mild bladder wall thickening, particula rly involving the left lateral aspect of the bladder and the dome of the bladder and there is mild pe rivesical inflammatory change. Reproductive Organs: Central prosthetic calcifications. Inguinal: The inguinal region is unremarkable without evidence of adenopathy. Bony Structures: Unremarkable. CONCLUSION: 1. Abnormal bladder appearance and abnormal appearance of the perivesical soft tissues. 2. 5 mm nonobstructing stone in the lower pole collecting system of the right kidney. 3. Probably benign liver lesion. Recommend further characterization with elective outpatient contras t MRI 4. Small fat-containing umbilical hernia. Electronically signed by: Michael Sanchez MD 08/29/2018 12:17 AM EST
[2018-08-29] MEDS: MethylPREDNISolone Sod Succinate Inj 125 MG/2 ML Vial IV.PUSH SCH ×4 (01:59→20:49)
--- NOTE | 2018-08-29 05:10 | ECG ---
Date Performed: 08/28/2018 Time Performed: 20:36:58 PTAGE: 73 years EKG: ATRIAL FIBRILLATION WITH RAPID VENTRICULAR RESPONSE WITH ABERRANT CONDUCTION OR VENTRICULAR PREMATURE COMPLEXES LEFT ANTERIOR FASCICULAR BLOCK INFERIOR MYOCARDIAL INFARCTION ABNORMAL ECG Eliazar red to prior electrocardiogram, Inferior WI pattern is now present. PREVIOUS TRACING : 08/28/2018 18.17 DOCTOR: Catalino Mccabe Interpretating Date/Time 08/29/2018 05:08:46
[2018-08-29] MEDS: buPROPion 150 MG 12 HR Tablet PO SCH ×2 (08:11→20:49)
[2018-08-29] MEDS: Folic Acid 1 MG Tablet PO SCH (08:11)
[2018-08-29] MEDS: Multivitamin/Minerals Therapeutic Tablet PO SCH (08:11)
[2018-08-29] MEDS: Citalopram 20 MG Tablet PO SCH (08:12)
[2018-08-29] MEDS: guaiFENesin 600 MG ER Tablet PO SCH ×2 (08:12→20:48)
[2018-08-29] MEDS: Carvedilol 12.5 MG Tablet PO SCH ×3 (08:13→20:54)
[2018-08-29] MEDS: Furosemide 20 MG Tablet PO SCH (08:13)
[2018-08-29] MEDS: Ramipril 2.5 MG Capsule PO SCH ×2 (08:50→20:49)
[2018-08-29] MEDS ORDERED: Aspirin 325 MG Tablet PO SCH (09:00)
--- NOTE | 2018-08-29 11:29 | P.CONURO ---
History of Present Illness Service: Consult date: 08/29/18 Requesting Physician: Michael Boucher Reason for Consult: Gross hematuria Primary Care Provider: Maday Us MD Chief Complaint: Chest pain History of Present Illness: 73-year-old gentleman with multiple medical problems who was admitted for further workup and management of new onset left-sided chest pain. During present hospitalization the patient developed gross painless hematuria that lasted for several voiding episodes. Patient denied any flank pain or dysuria associated with this. He denies having a history of hematuria or kidney stones in the past. He is presently on Eliquis. A CT scan study was performed that demonstrated no evidence of hydronephrosis or renal masses. A 5 mm right lower pole renal calculus along with a simple cyst of the right kidney was noted. The bladder did not demonstrate any intraluminal lesions, there was some perivesical inflammatory changes noted of indeterminate significance. At the time of consultation the patient reported that the hematuria had totally resolved and he was voiding without any difficulty. Review of Systems All other systems reviewed negative except as stated in HPI PMF - History History Provided By: Patient, Family Member - Medical History Medical History: Medical History (Last Reviewed 08/28/18 @ 18:59 by Michael Boucher MD) Asthma Atrial fibrillation CHF (congestive heart failure) COPD (chronic obstructive pulmonary disease) Depression Hyperlipidemia Hypertension - Surgical History Surgical History: Surgical History (Last Reviewed 08/28/18 @ 18:59 by Michael Boucher MD) Hx of tonsillectomy - Family History Family History: Family History (Last Updated 08/28/18 @ 18:59 by Michael Boucher MD) Other No pertinent family history - Tobacco History Second Hand Smoke Exposure: No Tobacco Use In Past 30 Days: No Smoking Status: Former smoker Tobacco Type: Cigarettes - Alcohol History How Often Do You Have a Drink Containing Alcohol: 4 or more times a week - Substance Use History Substance History: No History of Abuse - Substance Use Type Alcohol Status: Active Route Used: By Mouth Frequency: Mixed drinks, states usually one per night - Travel History Recent Travel in the [facility] Within the Last 8 Weeks: No Recent Travel Out of the Country Within the Last 8 Weeks: No - Immunization History Tetanus Immunization: <5 Years Hx Influenza Vaccine This Season: Yes Medications and Allergies Active Medications: Active Medications Acetaminophen (Tylenol) 500 mg PO Q4H PRN PRN Reason: HEADACHE Hydrocodone Bitart/Acetaminophen ([place] 7.5/325) 1 tab PO Q4H PRN PRN Reason: PAIN SCALE 1 TO 7 Albuterol (Ventolin Hfa Inh) 2 puff INH QID PRN PRN Reason: SHORTNESS OF BREATH/WHEEZING Albuterol (Albuterol Neb (Prn)) 2.5 mg NEB Q2HR NEB PRN PRN Reason: SHORTNESS OF BREATH Albuterol (Duoneb Neb ([facility])) 1 ampul NEB QID NEB [facility] Last Admin: 08/29/18 11:18 Dose: 1 ampul Atorvastatin Calcium (Lipitor) 80 mg PO DAILY [facility] Last Admin: 08/29/18 08:15 Dose: 80 mg Benzonatate (Tessalon Perles) 200 mg PO Q8H PRN PRN Reason: COUGH Bupropion HCl (Wellbutrin Sr) 150 mg PO BID [facility] Last Admin: 08/29/18 08:11 Dose: 150 mg Carvedilol (Coreg) 12.5 mg PO BID [facility] Last Admin: 08/29/18 08:13 Dose: Not Given Citalopram Hydrobromide (Celexa) 20 mg PO DAILY [facility] Last Admin: 08/29/18 08:12 Dose: 20 mg Enalaprilat (Vasotec Inj) 1.25 mg IV.PUSH Q6H PRN PRN Reason: SEE LABEL COMMENTS Flumazenil (Romazecon Inj) 0.2 mg IV.PUSH Q1M PRN PRN Reason: OVERSEDATION Folic Acid (Folic Acid) 1 mg PO DAILY [facility] Stop: 09/03/18 08:59 Last Admin: 08/29/18 08:11 Dose: 1 mg Furosemide (Lasix) 20 mg PO DAILY [facility] Last Admin: 08/29/18 08:13 Dose: 20 mg Guaifenesin (Mucinex Er) 600 mg PO BID [facility] Last Admin: 08/29/18 08:12 Dose: 600 mg Haloperidol Lactate (Haldol Inj) 1 mg IV.PUSH Q15M PRN PRN Reason: for severe agitation Levofloxacin (Levaquin) 750 mg PO Q24H [facility] Last Admin: 08/28/18 19:53 Dose: 750 mg Lorazepam (Ativan) 1 mg PO Q4H PRN PRN Reason: for CIWA 8-10 Lorazepam (Ativan) 2 mg PO Q2H PRN PRN Reason: for CIWA 11-14 Lorazepam (Ativan Inj) 2 mg IV.PUSH Q2H PRN PRN Reason: for CIWA 11-14 Lorazepam (Ativan Inj) 2 mg IV.PUSH Q1H PRN PRN Reason: for CIWA 15-20 Lorazepam (Ativan Inj) 2 mg IV.PUSH Q15M PRN PRN Reason: for CIWA > 20 Lorazepam (Ativan Inj) 1 mg IV.PUSH Q4H PRN PRN Reason: for CIWA 8-10 Methylprednisolone Sodium Succinate (Solumedrol Inj) 60 mg IV.PUSH Q6H [facility] Last Admin: 08/29/18 08:16 Dose: 60 mg Montelukast Sodium (Singulair) 10 mg PO QPM [facility] Last Admin: 08/28/18 18:22 Dose: 10 mg Morphine Sulfate (Morphine Inj) 2 mg IV.PUSH Q4H PRN PRN Reason: PAIN SCALE 8 TO 10 Multivitamins/Minerals (Theragran-M) 1 tab PO DAILY [facility] Stop: 09/03/18 08:59 Last Admin: 08/29/18 08:11 Dose: 1 tab Nitroglycerin (Nitrostat Sl) 0.4 mg SL Q5M PRN PRN Reason: CHEST PAIN Ondansetron HCl (Zofran Inj) 4 mg IV.PUSH Q6H PRN PRN Reason: NAUSEA Potassium Chloride (K-Dur) 20 meq PO BID [facility] Last Admin: 08/29/18 08:14 Dose: 20 meq Ramipril (Altace) 2.5 mg PO BID [facility] Last Admin: 08/29/18 08:50 Dose: 2.5 mg Sodium Chloride (Ns Flush) 2 ml IV.FLUSH BID [facility] Last Admin: 08/29/18 08:16 Dose: 2 ml Sodium Chloride (Ns Flush) 2 ml IV.FLUSH PRN PRN PRN Reason: FLUSH AFTER USING IV ACCESS Last Admin: 08/29/18 01:59 Dose: 2 ml Thiamine HCl (Vitamin B1) 100 mg PO DAILY [facility] Last Admin: 08/29/18 08:11 Dose: 100 mg Allergies Allergy/AdvReac Type Severity Reaction Status Date / Time No Known Allergies Allergy Verified 08/28/18 10:50 Home Medications Medication Instructions Recorded Confirmed Type Multi Vitamin 1 tab PO DAILY 05/19/18 08/28/18 History albuterol sulfate [Ventolin HFA] 18 mg INHALATION PRN PRN 05/19/18 08/28/18 History apixaban [Eliquis] 5 mg PO BID 05/19/18 08/28/18 History atorvastatin 80 mg PO DAILY 05/19/18 08/28/18 History bupropion HCl 300 mg PO QAM 05/19/18 08/28/18 History carvedilol 12.5 mg PO BID 05/19/18 08/28/18 History citalopram 20 mg PO DAILY 05/19/18 08/28/18 History diltiazem HCl [DILT-XR] 240 mg PO DAILY 05/19/18 08/28/18 History furosemide 20 mg PO DAILY 05/19/18 08/28/18 History montelukast 10 mg PO QPM 05/19/18 08/28/18 History omega-3 fatty acids-fish oil [Fish 2,400 mg PO DAILY 05/19/18 08/28/18 History Oil] potassium chloride 20 meq PO BID 05/19/18 08/28/18 History ramipril 2.5 mg PO BID 05/19/18 08/28/18 History Brioellipta Inh 08/28/18 History calcium citrate-vitamin D3 1 tab PO DAILY 08/28/18 08/28/18 History Physical Exam Vital Signs - 24 hr 08/28/18 12:40 08/28/18 16:21 08/28/18 17:16 Temperature Pulse Rate 86 70 84 Respiratory Rate 16 Blood Pressure 140/91 H 143/91 H Pulse Oximetry 94 L 95 08/28/18 17:51 08/28/18 18:24 08/28/18 20:00 Temperature 97.6 F Pulse Rate 85 Respiratory Rate 18 Blood Pressure 142/96 H 137/98 H Pulse Oximetry 96 93 L 08/28/18 20:15 08/29/18 00:00 08/29/18 04:00 Temperature 98.3 F 96.7 F L Pulse Rate 88 108 H 92 H Respiratory Rate 18 18 18 Blood Pressure 152/92 H 137/91 H Pulse Oximetry 98 92 L 94 L 08/29/18 07:30 08/29/18 08:00 08/29/18 11:19 Temperature 97.1 F L Pulse Rate 67 88 59 L Respiratory Rate 18 21 18 Blood Pressure 128/92 H Pulse Oximetry 92 L 95 Physical Exam: GENERAL: This is a well-nourished, well-developed patient, in no apparent distress. SKIN: No rashes, ecchymoses or lesions. Cool and dry. HEAD: Atraumatic. Normocephalic. No temporal or scalp tenderness. EYES: Pupils equal round and reactive. Extraocular motions intact. No scleral icterus. No injection or drainage. ENT: Nose without bleeding, purulent drainage or septal hematoma. Throat without erythema, tonsillar hypertrophy or exudate. Uvula midline. Airway patent. NECK: Trachea midline. No JVD or lymphadenopathy. Supple, nontender, no meningeal signs. CARDIOVASCULAR: Regular rate and rhythm without murmurs, gallops, or rubs. RESPIRATORY: Clear to auscultation. Breath sounds equal bilaterally. No wheezes , rales, or rhonchi. GASTROINTESTINAL: Abdomen soft, non-tender, nondistended. No hepato-splenomegaly , or palpable masses. No guarding. GENITOURINARY: No CVA tenderness, bladder not distended MUSCULOSKELETAL: Extremities without clubbing, cyanosis, or edema. No joint tenderness, effusion, or edema noted. No calf tenderness. Negative Homans sign bilaterally. NEUROLOGICAL: Awake and alert. Cranial nerves II through XII intact. Motor and sensory grossly within normal limits. Five out of 5 muscle strength in all muscle groups. Normal speech. Lab results reviewed: Yes Laboratory Results - last 24 hr 08/28/18 08/28/18 08/28/18 13:00 13:00 13:00 CBC w Diff Auto diff final WBC 9.4 RBC 4.74 Hgb 14.6 Hct 44.3 MCV 93.6 MCH 30.9 MCHC 33.0 RDW 13.0 Plt Count 180 MPV 8.5 Neut % (Auto) 69.9 Lymph % (Auto) 19.7 [place] % (Auto) 8.3 H Eos % (Auto) 1.4 Baso % (Auto) 0.7 Neut # (Auto) 6.5 Lymph # (Auto) 1.9 [place] # (Auto) 0.8 Eos # (Auto) 0.1 Baso # (Auto) 0.1 WBC Differential . Differential Comment . PT 12.0 H INR 1.2 APTT 30.3 Sodium 138 Potassium 4.2 Chloride 103 Carbon Dioxide 28.7 Anion Gap 6 BUN 12 Creatinine 0.85 Estimated GFR 89 Random Glucose 169 H Calcium 9.1 Magnesium 2.0 Total Bilirubin 0.6 AST 13 L ALT 21 Alkaline Phosphatase 117 Total Creatine Kinase Troponin I B-Natriuretic Peptide Total Protein 7.6 Albumin 3.1 L Urine Color Urine Clarity Urine pH Ur Specific [place] Urine Protein Urine Glucose (UA) Urine Ketones Urine Occult Blood Urine Nitrate Urine Bilirubin Urine Urobilinogen Ur Leukocyte Esterase Urine RBC Urine WBC Urine Bacteria Micro UA Comment Ur Microscopic Review Urine Culture Comments 08/28/18 08/28/18 08/28/18 13:00 13:00 17:30 CBC w Diff WBC RBC Hgb Hct MCV MCH MCHC RDW Plt Count MPV Neut % (Auto) Lymph % (Auto) [place] % (Auto) Eos % (Auto) Baso % (Auto) Neut # (Auto) Lymph # (Auto) [place] # (Auto) Eos # (Auto) Baso # (Auto) WBC Differential Differential Comment PT INR APTT Sodium Potassium Chloride Carbon Dioxide Anion Gap BUN Creatinine Estimated GFR Random Glucose Calcium Magnesium Total Bilirubin AST ALT Alkaline Phosphatase Total Creatine Kinase 42 Troponin I Less than 0.02 L Less than 0.02 L B-Natriuretic Peptide 203 H Total Protein Albumin Urine Color Urine Clarity Urine pH Ur Specific [place] Urine Protein Urine Glucose (UA) Urine Ketones Urine Occult Blood Urine Nitrate Urine Bilirubin Urine Urobilinogen Ur Leukocyte Esterase Urine RBC Urine WBC Urine Bacteria Micro UA Comment Ur Microscopic Review Urine Culture Comments 08/28/18 08/28/18 18:10 20:45 CBC w Diff WBC RBC Hgb Hct MCV MCH MCHC RDW Plt Count MPV Neut % (Auto) Lymph % (Auto) [place] % (Auto) Eos % (Auto) Baso % (Auto) Neut # (Auto) Lymph # (Auto) [place] # (Auto) Eos # (Auto) Baso # (Auto) WBC Differential Differential Comment PT INR APTT Sodium Potassium Chloride Carbon Dioxide Anion Gap BUN Creatinine Estimated GFR Random Glucose Calcium Magnesium Total Bilirubin AST ALT Alkaline Phosphatase Total Creatine Kinase 45 Troponin I Less than 0.02 L B-Natriuretic Peptide Total Protein Albumin Urine Color Red H Urine Clarity Turbid H Urine pH 7.0 Ur Specific [place] 1.020 Urine Protein 300 or greater H Urine Glucose (UA) 250 H Urine Ketones Negative Urine Occult Blood Large H Urine Nitrate Negative Urine Bilirubin Negative Urine Urobilinogen 2.0 H Ur Leukocyte Esterase Negative Urine RBC Innumerable H Urine WBC 0-5 Urine Bacteria Few H Micro UA Comment Culture not ind Ur Microscopic Review Microscopic reviewed Urine Culture Comments Culture not ind Microbiology 08/28/18 13:07 Influenza Types A,B Antigen - Final Nasal Wash Negative for FLU A and B antigen Infection due to influenza A or B cannot be ruled out since the antigen present in the sample may be below the detection limit of the test. Result Diagrams: 08/28/18 13:00 08/28/18 13:00 Personally reviewed images: Yes Imaging: ITS Impressions Abdomen/Pelvis CT 08/28/18 00:00 CONCLUSION: 1. Abnormal bladder appearance and abnormal appearance of the perivesical soft tissues. 2. 5 mm nonobstructing stone in the lower pole collecting system of the right kidney. 3. Probably benign liver lesion. Recommend further characterization with elective outpatient contrast MRI 4. Small fat-containing umbilical hernia. Chest X-Ray 08/28/18 12:53 CONCLUSION: Right basilar subsegmental atelectasis. Assessment and Plan - Assessment (1) Gross hematuria Code(s): R31.0 - Gross hematuria Status: Acute - Plan Urologic impression: New-onset gross painless hematuria now resolved. Recommendations: 1. No further intervention indicated during present hospitalization. 2. Patient advised to follow-up with me in the office within the next several months for reevaluation and likely cystoscopic evaluation. (Patient will be out of state until October 2018).
--- NOTE | 2018-08-29 11:38 | ECG ---
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 PREVIOUS TRACING : 08/28/2018 20.36 DOCTOR: Catalino Mccabe Interpretating Date/Time 08/29/2018 11:36:56
[2018-08-29] MEDS ORDERED: Regadenoson Inj 0.4 MG/5 ML Syringe IV.PUSH ONE (12:05)
[2018-08-29] MEDS ORDERED: dilTIAZem Inj 125 MG in Sodium Chlor 0.9% Inj 100 ML IV.CONT PRN (13:00)
--- NOTE | 2018-08-29 15:21 | P.PN ---
Subjective Interval history: Follow up for chest pain, afib, hematuria. Patient is doing well. He went for a stress test but his heart rate was in the 140s range. Stress test was postponed and we started patient on Cardizem drip in the ICU. Currently, he denies any chest pain, SOB, fever, chills. When he did have chest pain, he had sharp pain in the left side of his chest without any nausea, vomiting or diaphoresis. Physical Exam Vital signs: Vital Signs 08/28/18 16:21 08/28/18 17:16 08/28/18 17:51 Temperature Pulse Rate 70 84 Respiratory Rate Blood Pressure 143/91 H 142/96 H Pulse Oximetry 95 08/28/18 18:24 08/28/18 20:00 08/28/18 20:15 Temperature 97.6 F Pulse Rate 85 88 Respiratory Rate 18 18 Blood Pressure 137/98 H Pulse Oximetry 96 93 L 98 08/29/18 00:00 08/29/18 04:00 08/29/18 07:30 Temperature 98.3 F 96.7 F L Pulse Rate 108 H 92 H 67 Respiratory Rate 18 18 18 Blood Pressure 152/92 H 137/91 H Pulse Oximetry 92 L 94 L 92 L 08/29/18 08:00 08/29/18 11:19 08/29/18 13:10 Temperature 97.1 F L Pulse Rate 88 59 L 140 H Respiratory Rate 21 18 15 Blood Pressure 128/92 H Pulse Oximetry 95 08/29/18 13:11 08/29/18 14:00 Temperature Pulse Rate 134 H 112 H Respiratory Rate 13 11 L Blood Pressure 145/98 H 149/82 H Pulse Oximetry 92 L Intake & Output 08/28/18 08/29/18 08/29/18 18:59 06:59 18:59 Intake Total 480 / 480 0 / 0 Output Total 1700 / 1700 300 / 300 Balance -1220 / -1220 -300 / -300 Weight 104.8 kg 104.9 kg Intake: Oral 480 / 480 0 / 0 Output: Urine 1700 / 1700 300 / 300 Other: # Voids 2 Date of Last Bowel Movement 08/28/18 08/28/18 08/28/18 Weight On Admission 112.8 kg Narrative: GENERAL: Alert, NAD. SKIN: Warm and dry. HEAD: Normocephalic. EYES: No scleral icterus. No injection or drainage. NECK: Supple, trachea midline. No JVD or lymphadenopathy. CARDIOVASCULAR: Irreg Irreg, tachycardic without murmurs, gallops, or rubs. RESPIRATORY: Breath sounds equal bilaterally. No accessory muscle use. GASTROINTESTINAL: Abdomen soft, non-tender, nondistended. MUSCULOSKELETAL: No cyanosis, or edema. BACK: Nontender without obvious deformity. No CVA tenderness. Results - Labs CBC & Chem 7: 08/28/18 13:00 08/28/18 13:00 Laboratory Results - last 24 hr 08/28/18 08/28/18 08/28/18 17:30 18:10 20:45 Total Creatine Kinase 42 45 Troponin I Less than 0.02 L Less than 0.02 L Urine Color Red H Urine Clarity Turbid H Urine pH 7.0 Ur Specific [place] 1.020 Urine Protein 300 or greater H Urine Glucose (UA) 250 H Urine Ketones Negative Urine Occult Blood Large H Urine Nitrate Negative Urine Bilirubin Negative Urine Urobilinogen 2.0 H Ur Leukocyte Esterase Negative Urine RBC Innumerable H Urine WBC 0-5 Urine Bacteria Few H Micro UA Comment Culture not ind Ur Microscopic Review Microscopic reviewed Urine Culture Comments Culture not ind Microbiology 08/28/18 13:07 Nasal Wash Influenza Types A,B Antigen - Final Negative for FLU A and B antigen Infection due to influenza A or B cannot be ruled out since the antigen present in the sample may be below the detection limit of the test. - Imaging Impressions Abdomen/Pelvis CT 08/28/18 00:00 CONCLUSION: 1. Abnormal bladder appearance and abnormal appearance of the perivesical soft tissues. 2. 5 mm nonobstructing stone in the lower pole collecting system of the right kidney. 3. Probably benign liver lesion. Recommend further characterization with elective outpatient contrast MRI 4. Small fat-containing umbilical hernia. - Procedures None. Assessment and Plan - Plan This is a 73-year-old male with a history of asthma, COPD, congestive heart failure, hypertension, COPD, A. fib and hyperlipidemia. Complaints of nonexertional left-sided pain. Chest x-ray with no acute cardiopulmonary disease. EKG with no ST elevation. BP mildly elevated. Patient also with expiratory wheezes with respiratory symptoms. Also developed gross hematuria on Eliquis and aspirin. Chest pain Atrial fibrillation with RVR - atypical. Troponins negative. - Continue Carvedilol 12.5mg BID, Diltiazem drip. COPD exacerbation - Continue DuoNeb, Levaquin, Steroid. Gross hematuria - Urology recommends outpatient follow up. Hypertension Hyperthyroidism -Continue BB, Lasix. -Continue Lipitor. Full code. SCDs.
[2018-08-29] MEDS: Montelukast 10 MG Tablet PO SCH (20:48)
[2018-08-29] MEDS: levoFLOXacin 750 MG Tablet PO SCH (20:48)
[2018-08-30] MEDS: MethylPREDNISolone Sod Succinate Inj 125 MG/2 ML Vial IV.PUSH SCH ×4 (02:01→19:42)
[2018-08-30] MEDS: guaiFENesin 600 MG ER Tablet PO SCH ×2 (09:00→21:45)
[2018-08-30] MEDS: Citalopram 20 MG Tablet PO SCH (09:00)
[2018-08-30] MEDS: dilTIAZem 60 MG Tablet PO SCH ×4 (09:00→21:45)
[2018-08-30] MEDS: Folic Acid 1 MG Tablet PO SCH (09:00)
[2018-08-30] MEDS: Furosemide 20 MG Tablet PO SCH (09:00)
[2018-08-30] MEDS: Multivitamin/Minerals Therapeutic Tablet PO SCH (09:00)
[2018-08-30] MEDS: Ramipril 2.5 MG Capsule PO SCH ×2 (09:01→21:45)
[2018-08-30] MEDS: Metoprolol Tartrate 25 MG Tablet PO SCH ×2 (09:01→21:45)
[2018-08-30] MEDS: buPROPion 150 MG 12 HR Tablet PO SCH ×2 (09:14→21:45)
--- NOTE | 2018-08-30 10:54 | P.PN ---
Subjective Interval history: Follow-up for chest pain, atrial fibrillation. Patient is currently doing well. Sitting in his chair. He denies any further chest pain. His heart rate was controlled last night. However last night diltiazem drip was discontinued before p.o. medications were started. Patient's heart rate this morning was in the 110 - 120 range. Physical Exam Vital signs: Vital Signs 08/29/18 11:19 08/29/18 13:10 08/29/18 13:11 Temperature Pulse Rate 59 L 140 H 134 H Respiratory Rate 18 15 13 Blood Pressure 145/98 H Pulse Oximetry 08/29/18 14:00 08/29/18 15:00 08/29/18 15:05 Temperature Pulse Rate 112 H 114 H 114 H Respiratory Rate 11 L 15 22 Blood Pressure 149/82 H Pulse Oximetry 92 L 91 L 91 L 08/29/18 15:07 08/29/18 16:00 08/29/18 17:00 Temperature Pulse Rate 116 H 110 H 100 H Respiratory Rate 23 21 23 Blood Pressure 117/88 143/93 H 109/73 Pulse Oximetry 90 L 92 L 91 L 08/29/18 18:00 08/29/18 19:00 08/29/18 19:35 Temperature 98.6 F Pulse Rate 92 H 92 H 94 H Respiratory Rate 20 16 20 Blood Pressure 110/79 115/75 Pulse Oximetry 91 L 94 L 94 L 08/29/18 20:00 08/29/18 23:29 08/30/18 00:00 Temperature 98.6 F 98.4 F 98.4 F Pulse Rate 92 H 75 75 Respiratory Rate 16 16 20 Blood Pressure 115/75 113/76 113/76 Pulse Oximetry 96 96 08/30/18 03:27 08/30/18 04:00 08/30/18 08:00 Temperature 97.6 F 97.6 F 97.4 F L Pulse Rate 83 83 130 H Respiratory Rate 16 18 18 Blood Pressure 128/87 128/87 124/90 Pulse Oximetry 96 96 95 Intake & Output 08/29/18 08/30/18 08/30/18 18:59 06:59 18:59 Intake Total 400 / 400 0 / 0 Output Total 660 / 660 500 / 500 Balance -260 / -260 -500 / -500 Intake: IV 0 / 0 Cardizem Inj 125 MG In NS Inj 0 / 0 100 ML @ 5 MG/HR 5 mls/hr IV. CONT TITRATE PRN Rx#:[id number] Oral 400 / 400 Output: Urine 660 / 660 500 / 500 Other: Date of Last Bowel Movement 08/28/18 08/29/18 Narrative: GENERAL: Alert, NAD. SKIN: Warm and dry. HEAD: Normocephalic. EYES: No scleral icterus. No injection or drainage. NECK: Supple, trachea midline. No JVD or lymphadenopathy. CARDIOVASCULAR: Irreg Irreg, tachycardic without murmurs, gallops, or rubs. RESPIRATORY: Breath sounds equal bilaterally. No accessory muscle use. GASTROINTESTINAL: Abdomen soft, non-tender, nondistended. MUSCULOSKELETAL: No cyanosis, or edema. BACK: Nontender without obvious deformity. No CVA tenderness. Results - Labs CBC & Chem 7: 08/28/18 13:00 08/28/18 13:00 - Procedures None. Assessment and Plan - Plan This is a 73-year-old male with a history of asthma, COPD, congestive heart failure, hypertension, COPD, A. fib and hyperlipidemia. Complaints of nonexertional left-sided pain. Chest x-ray with no acute cardiopulmonary disease. EKG with no ST elevation. BP mildly elevated. Patient also with expiratory wheezes with respiratory symptoms. Also developed gross hematuria on Eliquis and aspirin. Chest pain Atrial fibrillation with RVR -atypical. Troponins negative. -Will start patient metoprolol 25 mg p.o. twice daily as well as diltiazem 60 mg 4 times daily. -If patient's heart rate is controlled, below 110, will try to obtain Lexiscan today. -Upon discharge will continue metoprolol as well as diltiazem long-acting. -Patient used to follow-up with Dr. Mccabe but he has not single Dr. Mccabe in almost 2 years. -Patient plans to follow-up with Dr. Mccabe again. COPD exacerbation -Continue DuoNeb, Levaquin, Steroid. Gross hematuria - Urology recommends outpatient follow up. Hypertension Hyperthyroidism -Continue BB, Lasix. -Continue Lipitor. Full code. SCDs. Discharge plan: Possible discharge home after Lexiscan is done if it is negative.
[2018-08-30] MEDS ORDERED: Regadenoson Inj 0.4 MG/5 ML Syringe IV.PUSH ONE (14:54)
--- NOTE | 2018-08-30 15:41 | NM ---
EXAM DATE: 08/30/2018 3:36 PM EST AGE/SEX: 73 years / Male INDICATIONS:Angina. Atrial fibrillation Left sided chest pain. CLINICAL DATA: This is the patient's initial encounter. Patient reports that signs and symptoms have been present for 1 day and indicates a pain score of 2/10. MEDICAL/SURGICAL HISTORY: Congestive heart failure. Chronic obstructive pulmonary disease. Hy pertension. None. COMPARISON: POI, US AORTA, 01/10/2017. . DOSE: 10 mCi Tc 99m Myoview at rest 30 mCi [id number] at stress 0.4 mg Lexiscan STRESS SYMPTOMS: Flushed. EJECTION FRACTION: 44 % TECHNIQUE: The patient underwent pharmacologic stress with infusion of prescribed dose. Continuous ECG tracing was monitored during stress. Gated SPECT imaging was performed after stress and conventi onal SPECT imaging was performed at rest. The examination was performed on a SPECT/CT scanner, both attenuation and non-corrected datasets were reviewed. FINDINGS: Distribution: The maximum perfused segment at stress is in the inferoseptal wall. Perfusion Study: Focal fixed perfusion defect in the apical wall. There is moderate stress-induced perfusion abnormality in the inferolateral wall. Gated Study: There are intact wall motion and wall thickening without hypokinetic or dyskinetic segm ents. The ejection fraction is calculated at 44%. RISK CATEGORY: Intermediate (1-3 % Annual Mortality Rate) CONCLUSION: 1. Moderate stress-induced ischemia in the inferolateral wall. 2. Findings consistent with focal infarct in the apical wall. 3. Global hypokinesia with EF of 44%. Electronically signed by: Miki Smith MD 08/30/2018 3:40 PM EST
[2018-08-30] MEDS: Montelukast 10 MG Tablet PO SCH (17:41)
[2018-08-30] MEDS: levoFLOXacin 750 MG Tablet PO SCH (19:42)
[2018-08-31] MEDS: MethylPREDNISolone Sod Succinate Inj 125 MG/2 ML Vial IV.PUSH SCH ×4 (01:58→20:34)
--- NOTE | 2018-08-31 07:50 | P.PN ---
Subjective Interval history: Follow-up for chest pain, atrial fibrillation. Patient is currently doing well. He is sitting in his chair. Denies any chest pain, shortness of breath, fever or chills. His heart rate is well controlled. Patient is scheduled to go to the main hospital for cardiac catheterization today. Currently n.p.o. Physical Exam Vital signs: Vital Signs 08/30/18 08:00 08/30/18 08:05 08/30/18 09:18 Temperature 97.4 F L Pulse Rate 122 H 109 H 124 H Respiratory Rate 38 H 16 35 H Blood Pressure 124/90 141/87 H Pulse Oximetry 96 95 08/30/18 10:00 08/30/18 11:35 08/30/18 12:00 Temperature 97.5 F L Pulse Rate 108 H 96 H 96 H Respiratory Rate 20 16 22 Blood Pressure 143/79 H 108/88 Pulse Oximetry 95 94 L 08/30/18 13:00 08/30/18 15:30 08/30/18 16:00 Temperature 97.5 F L Pulse Rate 98 H 114 H 112 H Respiratory Rate 25 H 22 25 H Blood Pressure 110/80 100/82 Pulse Oximetry 94 L 112 H 08/30/18 20:00 08/30/18 21:30 08/30/18 21:31 Temperature 98.5 F Pulse Rate 100 H 94 H Respiratory Rate 16 15 Blood Pressure 95/66 L Pulse Oximetry 93 L 95 08/31/18 00:00 08/31/18 04:00 Temperature 98.6 F 97.4 F L Pulse Rate 87 90 Respiratory Rate 16 16 Blood Pressure 112/70 135/87 Pulse Oximetry 97 Intake & Output 08/30/18 08/31/18 08/31/18 18:59 06:59 18:59 Intake Total 240 / 240 Balance 240 / 240 Weight 110 kg Intake: Oral 240 / 240 Other: Post Void Residual 500 Date of Last Bowel Movement 08/30/18 # Bowel Movements 0 Narrative: GENERAL: Alert, NAD. SKIN: Warm and dry. HEAD: Normocephalic. EYES: No scleral icterus. No injection or drainage. NECK: Supple, trachea midline. No JVD or lymphadenopathy. CARDIOVASCULAR: Irreg Irreg, tachycardic without murmurs, gallops, or rubs. RESPIRATORY: Breath sounds equal bilaterally. No accessory muscle use. GASTROINTESTINAL: Abdomen soft, non-tender, nondistended. MUSCULOSKELETAL: No cyanosis, or edema. BACK: Nontender without obvious deformity. No CVA tenderness. Results - Labs CBC & Chem 7: 08/28/18 13:00 08/28/18 13:00 - Imaging Impressions Myocardial Perfusion Scan Nuc Med 08/29/18 09:00 CONCLUSION: 1. Moderate stress-induced ischemia in the inferolateral wall. 2. Findings consistent with focal infarct in the apical wall. 3. Global hypokinesia with EF of 44%. - Procedures None. Assessment and Plan - Plan This is a 73-year-old male with a history of asthma, COPD, congestive heart failure, hypertension, COPD, A. fib and hyperlipidemia. Complaints of nonexertional left-sided pain. Chest x-ray with no acute cardiopulmonary disease. EKG with no ST elevation. BP mildly elevated. Patient also with expiratory wheezes with respiratory symptoms. Also developed gross hematuria on Eliquis and aspirin. Chest pain Atrial fibrillation with RVR -atypical. Troponins negative. Continue aspirin 81 mg as well as Lipitor 80 mg daily. -Continue metoprolol 25 mg p.o. twice daily as well as diltiazem 60 mg 4 times daily. -We will increase metoprolol to 50 mg twice daily. -Upon discharge will continue metoprolol as well as diltiazem long-acting. -Lexiscan shows stress-induced inferolateral wall ischemia. -Discussed with casing cooker who plans to do cardiac catheterization today -If cardiac cath is unremarkable, patient can be discharged from the main hospital. COPD exacerbation -Continue DuoNeb, Levaquin, Steroid. Gross hematuria - Urology recommends outpatient follow up. Hypertension Hyperthyroidism -Continue BB, Lasix. -Continue Lipitor. Full code. SCDs.
[2018-08-31] MEDS: Folic Acid 1 MG Tablet PO SCH (08:31)
[2018-08-31] MEDS: dilTIAZem 60 MG Tablet PO SCH (08:31)
[2018-08-31] MEDS: buPROPion 150 MG 12 HR Tablet PO SCH ×2 (08:31→20:31)
[2018-08-31] MEDS: Multivitamin/Minerals Therapeutic Tablet PO SCH (08:32)
[2018-08-31] MEDS: guaiFENesin 600 MG ER Tablet PO SCH ×2 (08:32→20:32)
[2018-08-31] MEDS: Furosemide 20 MG Tablet PO SCH (08:32)
[2018-08-31] MEDS: Citalopram 20 MG Tablet PO SCH (08:32)
[2018-08-31] MEDS: Ramipril 2.5 MG Capsule PO SCH ×2 (08:32→20:33)
[2018-08-31] MEDS ORDERED: Metoprolol Tartrate 50 MG Tablet PO SCH (09:00)
[2018-08-31] MEDS ORDERED: Heparin/NS PF Inj 1,500 ML ONE (10:25)
[2018-08-31] MEDS ORDERED: fentaNYL Citrate Inj 100 MCG/2 ML Ampul ONE (10:25)
[2018-08-31] MEDS ORDERED: Heparin 10,000 UNITS/10 ML Vial (for IV use) ONE (10:25)
[2018-08-31] MEDS ORDERED: Lidocaine PF 1% Inj 30 ML Vial ONE (10:26)
[2018-08-31] MEDS ORDERED: Labetalol HCl Inj 100 MG/20 ML Vial ONE (10:58)
--- NOTE | 2018-08-31 11:27 | CATHPROC ---
[employer] HIS Report Study Information Study Number Admission Scheduled Start Study Start [id number] Aug 29 2018 1:26PM 08/31/2018 Aug 31 2018 10:15AM [place] [facility] Cath Endovascular Study Admit Source Facility Department Transfer in from another acute care facility [facility] - Food Products Sales Representative Physician and Clinical Staff Initial Teddy Hendrix Roll Edge Machine Operator Sadia Zhou,MARIEL Recorder Sagar Velez,RT(R) Scrub Celina Field ,RT(R) Procedures Performed Procedure Location (Site) Vessel Name Coronary Angiograms LCA Left Coronary Coronary Angiograms RCA Right Coronary L Heart Cath Wire insertion Fem Art (right) Femoral Art Equipment Time Branch Operations Specialist Description Size Mfg Part Number Used/Scraped TRANSDUCER, TRUWAVE [id number] 10:26 REIS MITCHELL * Used W/STOCKCOCK *[id number] INTRODUCER SET, 10:26 [employer] FR 5 [id number] *[id number] Used MICROPUNCTURE STIFF 534-520T *[id number] [id number] *[id number] [id number] *[id number] 10:26 [employer] BLANKET,WARM AIR CCL * Used *[id number] 10:26 [employer] PACK, CCL CUSTOM * Used *[id number] 10:26 Supramed MEDICAL WIRE, 3MMJ .035 180CM 180CM Used *[id number] 10:26 NAMIC MANIFOLD, 4 PORT * Used *[id number] 10:26 NYCOMED OMNIPAQUE, 350 MG, 150ML 150ML [id number] Used [id number] 10:26 [employer]ac MEDICAL SHEATH, FR5 TERUMO (10CM) FR 5 Used *[id number] History: Allergies Allergy Reaction No Known Allergies History: Risk Factors Family History of Hypertension Dyslipidemia Previous ID Previous Heart Failure Premature CAD Yes Yes No No Yes Prior Valve Prior PCI Prior CABG Surgery No No No Cerebrovascular Peripheral Artery Chronic Lung On Dialysis Diabetes Disease Disease Disease No No No Yes No History: Stress Tests Stress or Imaging Studies Performed Yes Standard Exercise Stress Test No Stress Echo No Stress Test SPECT Stress Test SPECT Result Yes Indeterminant Stress Test CMR No Cardiac CTA Coronary Calcium Score No No History: Other Current Smoker Method Quit Packs a Day Years Used Pack Years No Cigarettes 15 Years Ago 1 30 30 Labs Hgb (g/dl) Hct (%) WBC (l/cumm) Platelets (thousands) 11.60-17.00 35.00-51.00 4.00-11.00 150.00-450.00 14.6 44.3 9.4 180 Glucose (mg/dl) BUN (mg/dl) Creatinine (mg/dl) BUN:Creatinine (1:x) 74.00-106.00 7.00-18.00 0.50-1.30 10.00-20.00 169 12 0.8 15 Na (meq/l) K (meq/l) 136.00-145.00 3.50-5.10 138 4.2 INR (PTT:PT) 0.90-1.10 1.2 CPK-MB (ng/ML) 0.50-3.60 Not Drawn Medication Medication Total Dose (Bolus/Oral) Medication Total Dosage/Unit 1% XYLOCAINE 20 mL FENTANYL 75 mcg VERSED 0.5 mg Medications (Bolus/Oral) Medication Time Given Dosage/Unit Administered By Reason 1% XYLOCAINE 08/31/2018 10:34:19 AM 20 mL Teddy Schwarz 20 mL 1% XYLOCAINE given in lab by Teddy Schwarz in Right Groin via Subcutaneous. Ordered by Teddy Desai VERSED 08/31/2018 10:44:27 AM 0.5 mg Sadia Zhou 0.5 mg VERSED given in lab by Sadia Zhou RN in Left Hand via Peripheral IV. Ordered by Teddy Schwarz FENTANYL 08/31/2018 10:45:48 AM 25 mcg Sadia Zhou 25 mcg FENTANYL given in lab by Sadia Zhou RN via Peripheral IV. Ordered by Teddy Schwarz FENTANYL 08/31/2018 11:07:23 AM 50 mcg Sadia Zhou 50 mcg FENTANYL given in lab by Sadia Zhou RN via Peripheral IV. Ordered by Teddy Schwarz Medication (Drip) Medication Time Given Dosage/Unit Concentration/Unit Diluent (ml) Solution IV Solutions 08/31/2018 10:19:58 AM 0 mL (IV) 500 NaCl .9 Patient arrived on IV Solutions given by Teddy Schwarz in Left Hand via Peripheral IV. Pump/Dri p Flow = 20 ml/hr using NaCl .9. Ordered by Teddy Schwarz Initial Case Assessment Cardiovascular HR Rhythm NIBP Chest Pain 96 afib 165/132 0 Edema Present Skin color Skin None Normal Warm Dry Circulatory - Right Pulses Dorsalis Pedis Femoral 1 2 Scale (0,1,2,3,4,d) Circulatory - Left Pulses Dorsalis Pedis Femoral 1 2 Scale (0,1,2,3,4,d) Neurological State Oriented to time-place- Alert Moves all extremities person Respiration - General Respiration Rate SpO2 (%) O2 (lpm) (B/min) 18 96 0 Chronological Log Time Study Chronological Log 10:14:09 Patient arrived via Bed. 10:15:14 Patient Name, D.O.B, / Armband Verified By R.N. 10:15:15 Consent signed by the physician and the patient and verified by the Food Products Sales Representative staff. 10:15:16 Pre-op and post- op instructions given; patient acknowledges understanding of instructions. 10:16:08 Verbal Stimulation=2 Physical Stimulation=2 Airway=2 Respiration=2 TOTAL=8. (0=absent, 1=li mited, 2=present) 10:16:16 Presedation assessment performed by Food Products Sales Representative RN. 10:16:18 Patient has been NPO for More than 6Hrs. 10:18:59 Skin Breakdown-none present per patient. 10:19:46 Patient Warmer Placed on the Table. 10:19:49 A # 20 IV was noted in the Hand (left). Grade = 0 Patient arrived on IV Solutions given by Teddy Schwarz in Left Hand via Peripheral IV. Pu mp/Drip Flow = 20 ml/hr 10:19:58 using NaCl .9. Ordered by Teddy Schwarz. 10:20:13 History and physical on the chart or being dictated. Vitals capture started with the following parameters, Patient=Adult, Interval=5 min, Initial Pr zlqrba=687 mmHg, 10:20:17 Deflation Rate=5 mmHg, Cuff placed on Left Arm 10:21:27 VK=829 bpm, AQGF=463/132 mmhg, SpO2=95.0 %, Resp=22 B/min, Pires=2 10:21:39 Bilateral groins prepped with 2% chlorhexidine, and draped after a 3 minute waiting time. Assessment: Initial Case, HR=96 BPM, Rhythm=afib, GGYS=068/132 mmhg, Chest Pain=0, Edema=None, Color=Normal, Skin = Warm, Dry Right Pulses: Eric Ped=1, Femoral=2 10:21:43 Left Pulses: Eric Ped=1, Femoral=2 Neurological: State=Alert, Ox3, CHANDLER Respiration: Resp=18 B/min, SpO2=96 %, O2=0 lpm 10:22:29 Reference ECG taken 10:26:00 UX=796 bpm, PFKN=692/126 mmhg, SpO2=93.0 %, Resp=14 B/min, Pires=2 10:31:01 OH=525 bpm, QUTQ=415/116 mmhg, SpO2=96.0 %, Resp=19 B/min, Pires=2 10:32:12 Pressure channel 1 zeroed. Time Out. Correct patient, correct procedure, correct physician, labs, allergies, and equipment verified with chemical lab supervisor 10:33:52 team present. Fire risk assesment completed (see hard stop sheet for coding). Time Out Conc urred by MD and individual staff in procedure. 10:34:08 Presedation re-assessment performed by Food Products Sales Representative RN. 10:34:10 Case Start 10:34:12 Verbal Stimulation=2 Physical Stimulation=2 Airway=2 Respiration=2 TOTAL=8. (0=absent, 1=li mited, 2=present) 20 mL 1% XYLOCAINE given in lab by Teddy Schwarz in Right Groin via Subcutaneous. Ordered by Chong, 10:34:19 Teddy Valdez. 10:36:37 NZ=197 bpm, UEBR=649/124 mmhg, SpO2=96.0 %, Resp=11 B/min, Pires=2 10:37:09 Access site was Right Femoral Artery. 10:37:15 A WIRE, 3MMJ .035 180CM 180CM was inserted via Fem Art (right). A SHEATH, FR5 TERUMO (10CM) FR 5 was exchanged in the Fem Art (right). This was necessary in or hosea to 10:37:19 accomodate a larger catheter. 10:39:43 An injection in the Fem Art (right) was made through the SHEATH, FR5 TERUMO (10CM) FR 5. 10:40:57 UF=320 bpm, PFWC=980/126 mmhg, SpO2=94.0 %, Resp=18 B/min, Pires=2 A JR 4.0 INFINITI CATHETER FR 5 was advanced over a wire. OMNIPAQUE, 350 MG, 150ML 150ML was us ed for 10:41:20 injections. 10:43:35 Pressure channel 1 zeroed. 10:44:20 A WIRE, 3MMJ .035 180CM 180CM was inserted via Fem Art (right). 10:44:27 0.5 mg VERSED given in lab by Sadia Zhou, RN in Left Hand via Peripheral IV. Ordered b Teddy Gil 10:45:15 Wire removed Recorded Pressure: LV, WD=463, Condition=Condition 1 10:45:39 (Left Ventricle) LV 145/6/10 10:45:48 25 mcg FENTANYL given in lab by Sadia Zhou RN via Peripheral IV. Ordered by Teddy Schwarz Recorded Pressure: LV, Ao, LL=621, Condition=Condition 1 10:45:55 (Left Ventricle) LV 139/6/9, (Aorta) Ao 148/97/119 10:45:58 YW=733 bpm, VEWV=930/113 mmhg, SpO2=92.0 %, Resp=20 B/min, Pires=2 10:46:37 The RCA was injected and visualized at various angles. OMNIPAQUE, 350 MG, 150ML 150ML used . After removing the current catheter a JL 4.0 INFINITI CATHETER FR 5 was advanced over a WIRE, 3 MMJ .035 180CM 10:48:13 180CM. 10:49:32 The LCA was injected and visualized at various angles. OMNIPAQUE, 350 MG, 150ML 150ML used . 10:51:34 UG=175 bpm, RIQT=592/100 mmhg, SpO2=92.0 %, Resp=25 B/min, Pires=2 After removing the current catheter a JL 4.5 INFINITI CATHETER FR 5 was advanced over a WIRE, 3 MMJ .035 180CM 10:51:49 180CM. 10:52:12 The LCA was injected and visualized at various angles. OMNIPAQUE, 350 MG, 150ML 150ML used . 10:55:58 HR=93 bpm, WYNW=797/108 mmhg, SpO2=93.0 %, Resp=23 B/min, Pires=2 10:57:17 Catheter was removed 11:00:00 Case End (Physician broke scrub) 11:00:59 MC=556 bpm, OCVB=789/93 mmhg, SpO2=93.0 %, Resp=26 B/min, Pires=2 11:04:43 Sheath removed; pressure applied to access site. 11:06:31 FR=356 bpm, YORZ=031/127 mmhg, SpO2=96.0 %, Resp=20 B/min 11:07:23 50 mcg FENTANYL given in lab by Sadia Zhou, MARIEL via Peripheral IV. Ordered by Teddy Schwarz 11:09:15 Sterile dressing applied to site 11:09:16 No case complications noted. 11:09:17 Cine recording checked. 11:09:20 Bedside Report will be given. 11:09:22 A Left Heart Cath was performed. 11:11:07 WG=644 bpm, ZNGI=258/118 mmhg, SpO2=94.0 %, Resp=21 B/min 11:16:00 HR=98 bpm, QYXG=385/105 mmhg, SpO2=93.0 %, Resp=16 B/min 11:21:01 WKIB=510/100 mmhg End Study - Contrast Media Used In Study Contrast Total Opened (mL) Total Used (mL) Total Wasted (mL) Omnipaque 150 70 80 End Study - Maximum Contrast Load Max Contrast Load (mL) 687.5 End Study - Radiation Exposure Fluoro Time (minutes) 5.2 End Study - Sheaths Sheaths Pulled By Sheath Hold Time (min) Sagar Velez End Study - Patient Disposition Complications Transferred To Interventional Outcome No Regular Bed No attempt made
[2018-08-31] MEDS ORDERED: Iohexol 350 MG/ML 100 ML Vial (for Cath Lab) IVCONTRAST ONE (11:49)
--- NOTE | 2018-08-31 11:55 | MA ---
cc: Teddy Schwarz DO DATE: 08/31/2018 PROCEDURE: Left heart catheterization, coronary angiogram, moderate sedation 25 minutes. PREPROCEDURE DIAGNOSES: Chest pain, abnormal stress test (intermediate risk). POSTPROCEDURE DIAGNOSIS: Mild coronary artery disease, atrial fibrillation with rapid ventricular response, accelerated hypertension. MEDICATIONS: Versed 0.5 mg, fentanyl 75 mcg. CONTRAST USED: 70 mL. FLUOROSCOPY: 5.2 minutes. MODERATE SEDATION: 25 minutes. FRAILTY SCORE: 4. ESTIMATED BLOOD LOSS: 10 mL. PROCEDURAL SUMMARY: Jose Cruz Worthington is a pleasant 73-year-old male who sees my partner, Dr. Mccabe, in the office and presented to [facility] Emergency Room due to multiple issues. During his episode, he had passed a kidney stone, but also had episodes of chest pain. He underwent a stress test, which showed intermediate risk and because of this, he was recommended cardiac catheterization. Risks, benefits and alternatives were explained to him and he consented to such. He was brought to the lab and prepped in the usual sterile fashion. Right femoral artery was accessed using modified Seldinger technique and placement of a 5-Cymraes sheath. This was easily aspirated and flushed. A JR4 was advanced over a J-wire to the ascending aorta and across the aortic valve for measurement of left ventricular pressure. This was pulled back across the aortic valve showing no significant gradient of aortic stenosis. JR4 was used for selective angiography of the right coronary artery system. This was exchanged out for a JL4.5, which was used for selective angiography of the left coronary artery system. JL4.5 was removed over a J wire. Sheath was removed and pressure was held for hemostasis. The patient left the quality control lab tech cardiovascularly stable. LEFT MAIN: Normal-sized vessel with adequate reflux. It trifurcates into an LAD, ramus and circumflex. LAD: Moderate sized vessel with mild luminal irregularities throughout the proximal and mid portion. No significant disease noted. It gives off one diagonal with no significant disease. RAMUS: Small to moderate sized vessel with no significant disease. It does appear to have some minor myocardial bridging in the mid portion. LEFT CIRCUMFLEX: Moderate size vessel, which is dominant in nature. It gives off 2 obtuse marginals as well as a PDA. The first obtuse marginal was overall small. The second obtuse marginal was a larger branch with a 30% lesion in the mid portion. Distal left PDA has no significant disease. RCA: High anterior small, nondominant vessel. LVEDP 9. IMPRESSION: 1. Mild coronary artery disease. 2. Atrial fibrillation with mostly controlled rhythm. 3. Accelerated hypertension. RECOMMENDATIONS: 1. Mr. Worthington appears to have mild coronary artery disease with no significant lesions at this time. 2. I recommend that he have his heart rate and blood pressure further controlled. 3. Upon discharge, he can follow up with Dr. Mccabe. Thank you for allowing me to see Jose Cruz Worthington. If there are any questions, please do not hesitate to call. Teddy Schwarz DO VGP/sv , 11:14 AM , 11:25 AM
[2018-08-31] MEDS: Montelukast 10 MG Tablet PO SCH (17:20)
[2018-08-31] MEDS: levoFLOXacin 750 MG Tablet PO SCH (20:32)
[2018-08-31] MEDS: Metoprolol Tartrate 25 MG Tablet PO SCH (20:33)
--- NOTE | 2018-09-01 01:06 | MB ---
cc: Teddy Schwarz DO DATE: 08/31/2018 REASON FOR CONSULTATION: Abnormal stress test, chest pain. HISTORY OF PRESENT ILLNESS: Jose Cruz Worthington is a pleasant 73-year-old male who previously saw my partner, Dr. Mccabe, in the office and presented to [place] due to chest pain. He states that the chest pain is left-sided and nonexertional in nature. It radiates to his neck as well as to his left lower extremity. He denies diaphoresis, nausea, or vomiting with the episode. He states that the pain lasted for about 20 minutes. He also noted his blood pressure was significantly high during the episode. While here, he also had some hematuria. Lastly, he was noted to be in atrial fibrillation with rapid ventricular response. He underwent a pharmacologic nuclear stress test, which showed inferolateral ischemia considered an intermediate risk stress test and I was asked to see him for consideration of cardiac catheterization. PAST MEDICAL HISTORY: 1. Asthma. 2. Atrial fibrillation. 3. Congestive heart failure. 4. Chronic obstructive pulmonary disease. 5. Depression. 6. Hyperlipidemia. 7. Hypertension. PAST SURGICAL HISTORY: Tonsillectomy. ALLERGIES: NO KNOWN DRUG ALLERGIES. MEDICATIONS: 1. Potassium chloride 20 mEq b.i.d. 2. Coreg 12.5 mg b.i.d. 3. Eliquis 5 mg b.i.d. 4. Lipitor 80 mg daily. 5. Albuterol as needed. 6. Montelukast 10 mg every night. 7. Ramipril 2.5 mg b.i.d. 8. Cardizem-XR 240 mg daily. 9. Lasix 20 mg daily. 10. Lexapro 20 mg daily. 11. Bupropion 300 mg daily. 12. Breo Elipta as needed. FAMILY HISTORY: Denies premature coronary artery disease or sudden cardiac within the family. SOCIAL HISTORY: The patient is a previous smoker. He drinks occasionally throughout the week, usually once a night. REVIEW OF SYSTEMS: Fourteen systems were reviewed including osteopathic. Pertinent positives and negatives above, otherwise negative. PHYSICAL EXAMINATION: VITAL SIGNS: Temperature 97.8, heart rate 100, blood pressure 154/90, respirations 17, pulse oximetry 94% on room air. GENERAL: The patient appears well, in no acute distress, alert, awake and oriented x3. HEENT: Extraocular muscles intact. Mucous membranes moist. NECK: Supple. No JVD at 45 degrees. No carotid bruits heard bilaterally. Carotid upstroke is brisk in nature. HEART: Irregularly irregular. Positive first and second heart sounds noted. No murmurs, gallops or rubs. LUNGS: Clear to auscultation bilaterally. No wheezes, rales or rhonchi. ABDOMEN: Soft, nontender, nondistended. No organomegaly noted. EXTREMITIES: Show no clubbing, cyanosis or edema. Femoral and distal pulses intact bilaterally. NEUROLOGIC: No focal deficits. SKIN: Warm, dry and intact. OSTEOPATHIC: No kyphoscoliosis, lordosis or paraspinal tender points. LABORATORY DATA: Hemoglobin 14.6, hematocrit 44.3, platelets 180. Potassium 4.2, BUN 12, creatinine 0.89. Troponin negative x3. Electrocardiogram (08/29/2018 at 10:41): Atrial fibrillation with rapid ventricular response, left anterior fascicular block, possible old inferior myocardial infarction, nonspecific ST-T wave changes. ASSESSMENT: 1. Chest pain, atypical for coronary insufficiency. 2. Abnormal stress test (intermediate risk). 3. Atrial fibrillation with rapid ventricular response. 4. Hypertension. 5. Hyperlipidemia. 6. Congestive heart failure. RECOMMENDATIONS: 1. Mr. Worthington underwent a stress test showing a possible inferolateral ischemia, which is considered an intermediate risk. Because this will, he will be recommended cardiac catheterization. 2. Risks, benefits, and alternatives have been explained to him and he consented to such. 3. He has also been noted to have elevated heart rates with his atrial fibrillation as well as elevated blood pressure. We will plan on increasing his Cardizem to 90 mg 4 times a day. He may be discharged home on Cardizem-XR 360 mg daily. 4. He will continue on his Eliquis post-cardiac catheterization for his atrial fibrillation. 5. Further recommendations will be made after coronary visualization. Thank you for allowing me to see Jose Cruz Worthington. If there are any questions, please do not hesitate to call. DO SHALINI Gonzalez/barbara , 11:36 PM , 11:49 PM
[2018-09-01] MEDS: MethylPREDNISolone Sod Succinate Inj 125 MG/2 ML Vial IV.PUSH SCH (01:11)
[2018-09-01 04:09] VITALS: RESP 18
--- NOTE | 2018-09-01 08:43 | P.PN ---
Subjective Interval history: Follow-up chest pain/A. fib with RVR/gross hematuria September 01, 2018-patient seen and examined, denies any chest pain or shortness of breath. He had a clean left heart catheterization done yesterday. No more gross hematuria. Physical Exam Vital signs: Vital Signs 08/31/18 09:00 08/31/18 14:54 08/31/18 15:00 Temperature 97.4 F L Pulse Rate 100 H 94 H 88 Respiratory Rate 25 H 20 Blood Pressure 154/90 H 120/75 Pulse Oximetry 94 L 08/31/18 15:24 08/31/18 16:00 08/31/18 16:20 Temperature 97.8 F Pulse Rate 84 84 84 Respiratory Rate 16 20 Blood Pressure 120/78 Pulse Oximetry 98 96 08/31/18 19:00 08/31/18 19:15 08/31/18 20:00 Temperature 97.6 F Pulse Rate 85 84 84 Respiratory Rate 20 18 Blood Pressure 116/80 Pulse Oximetry 94 L 08/31/18 21:00 08/31/18 22:00 08/31/18 23:00 Temperature Pulse Rate 88 80 79 Respiratory Rate Blood Pressure Pulse Oximetry 09/01/18 00:00 09/01/18 01:00 09/01/18 02:00 Temperature 98.0 F Pulse Rate 81 77 78 Respiratory Rate 20 Blood Pressure 125/90 Pulse Oximetry 95 09/01/18 03:00 09/01/18 04:00 09/01/18 05:00 Temperature 97.5 F L Pulse Rate 87 76 81 Respiratory Rate 18 Blood Pressure 125/91 H Pulse Oximetry 95 09/01/18 06:00 Temperature Pulse Rate 69 Respiratory Rate Blood Pressure Pulse Oximetry Intake & Output 08/31/18 09/01/18 09/01/18 18:59 06:59 18:59 Intake Total 590 / 590 480 / 480 Output Total 1250 / 1250 350 / 350 Balance -660 / -660 130 / 130 Weight 110 kg Intake: IV 10 / 10 Heparin/NS PF Inj 1,500 ML @ 0 10 / 10 mls/hr .ROUTE .[facility] Rx#: [id number] Oral 480 / 480 480 / 480 Anesthesia Amount 100 / 100 Output: Urine 1250 / 1250 350 / 350 Other: # Voids 1 Date of Last Bowel Movement 08/31/18 08/31/18 # Bowel Movements 1 Narrative: GENERAL: Alert, NAD. SKIN: Warm and dry. HEAD: Normocephalic. EYES: No scleral icterus. No injection or drainage. NECK: Supple, trachea midline. No JVD or lymphadenopathy. CARDIOVASCULAR: Irreg Irreg, tachycardic without murmurs, gallops, or rubs. RESPIRATORY: Breath sounds equal bilaterally. No accessory muscle use. GASTROINTESTINAL: Abdomen soft, non-tender, nondistended. MUSCULOSKELETAL: No cyanosis, or edema. BACK: Nontender without obvious deformity. No CVA tenderness. Results - Labs CBC & Chem 7: 08/28/18 13:00 08/28/18 13:00 - Procedures None. Assessment and Plan - Plan 73-year-old man with Chest pain Atrial fibrillation with RVR -atypical. Troponins negative. Continue aspirin 81 mg as well as Lipitor 80 mg daily. -Continue metoprolol 25 mg p.o. twice daily as well as diltiazem 90 mg 4 times daily. -Lexiscan shows stress-induced inferolateral wall ischemia. -Left heart catheterization August 31, 2018 with mild coronary artery disease without any lesion -Resume Eliquis COPD exacerbation -Continue DuoNeb, Levaquin, Solu Medrol however changed to p.o. Gross hematuria -resolved. Urology recommends outpatient follow up. Hypertension Hyperthyroidism -Continue BB, Lasix. -Continue Lipitor. Full code. SCDs.
[2018-09-01 08:49] VITALS: BP 155/98; PULSE 89; TEMP 97.2; O2SAT 96
[2018-09-01] MEDS: Metoprolol Tartrate 25 MG Tablet PO SCH (08:50)
[2018-09-01] MEDS: Citalopram 20 MG Tablet PO SCH (08:50)
[2018-09-01] MEDS: Furosemide 20 MG Tablet PO SCH (08:50)
--- NOTE | 2018-09-01 08:50 | P.DS ---
Date of admission: 08/29/18 13:26 Primary care physician: Maday Us MD Brief History from admission: This is a 73-year-old male with a history of asthma, COPD, congestive heart failure, hypertension, COPD, A. fib and hyperlipidemia. He presents to the emergency department because of chest pain that started this morning. He describes an intermittent moderate left-sided sharp nonexertional chest pain radiating to his neck and left lower extremity. Denies diaphoresis, nausea and palpitations. He also noted that his blood pressure was elevated which is usually under control. Patient also has been having flulike symptoms with dizzy spells, achy joints, productive cough with clear phlegm and shortness of breath with wheezing. Flu screen was negative in the ED. He reports that pain was not initially pleuritic but now it is worse when he coughs. CHEST Xray independently reviewed by me with no acute cardiopulmonary disease except for right subsegmental atelectasis. EKG independently reviewed by me with atrial fibrillation with controlled ventricular response and Q waves in 3 and aVL unchanged from previous. Initial CK and troponin unremarkable. Patient has been started on aspirin in addition to Eliquis. While in the hall, patient developed gross hematuria with no blood clots. Has pain in his penile area but no abdominal pain. Denies history of bleeding or stones. Intentional weight loss with good appetite. All other systems reviewed negative DS: Summary Hospital Course: While in hospital, patient was treated for: Chest pain Atrial fibrillation with RVR -atypical. Troponins negative. Continue aspirin 81 mg as well as Lipitor 80 mg daily. -Continue metoprolol 25 mg p.o. twice daily as well as diltiazem 90 mg 4 times daily. -Lexiscan shows stress-induced inferolateral wall ischemia. -Left heart catheterization August 31, 2018 with mild coronary artery disease without any lesion -Resume Eliquis COPD exacerbation -Treated with DuoNeb, Levaquin, Solu Medrol however changed to p.o. Gross hematuria -resolved. Urology recommends outpatient follow up. Hypertension Hyperthyroidism -Continue BB, Lasix. -Continue Lipitor. - Time Spent with Patient Total time spent providing and/or coordinating discharge services: Less than 30 minutes - Quality: VTE Deep Vein Thrombosis/Pulmonary Embolism Present on Admission: No Exam Vital signs: Vital Signs 08/31/18 09:00 08/31/18 14:54 08/31/18 15:00 Temperature 97.4 F L Pulse Rate 100 H 94 H 88 Respiratory Rate 25 H 20 Blood Pressure 154/90 H 120/75 Pulse Oximetry 94 L 08/31/18 15:24 08/31/18 16:00 08/31/18 16:20 Temperature 97.8 F Pulse Rate 84 84 84 Respiratory Rate 16 20 Blood Pressure 120/78 Pulse Oximetry 98 96 08/31/18 19:00 08/31/18 19:15 08/31/18 20:00 Temperature 97.6 F Pulse Rate 85 84 84 Respiratory Rate 20 18 Blood Pressure 116/80 Pulse Oximetry 94 L 08/31/18 21:00 08/31/18 22:00 08/31/18 23:00 Temperature Pulse Rate 88 80 79 Respiratory Rate Blood Pressure Pulse Oximetry 09/01/18 00:00 09/01/18 01:00 09/01/18 02:00 Temperature 98.0 F Pulse Rate 81 77 78 Respiratory Rate 20 Blood Pressure 125/90 Pulse Oximetry 95 09/01/18 03:00 09/01/18 04:00 09/01/18 05:00 Temperature 97.5 F L Pulse Rate 87 76 81 Respiratory Rate 18 Blood Pressure 125/91 H Pulse Oximetry 95 09/01/18 06:00 Temperature Pulse Rate 69 Respiratory Rate Blood Pressure Pulse Oximetry Intake & Output 08/31/18 09/01/18 09/01/18 18:59 06:59 18:59 Intake Total 590 / 590 480 / 480 Output Total 1250 / 1250 350 / 350 Balance -660 / -660 130 / 130 Weight 110 kg Intake: IV 10 / 10 Heparin/NS PF Inj 1,500 ML @ 0 10 / 10 mls/hr .ROUTE .[facility] Rx#: [id number] Oral 480 / 480 480 / 480 Anesthesia Amount 100 / 100 Output: Urine 1250 / 1250 350 / 350 Other: # Voids 1 Date of Last Bowel Movement 08/31/18 08/31/18 # Bowel Movements 1 Narrative: GENERAL: Alert, NAD. SKIN: Warm and dry. HEAD: Normocephalic. EYES: No scleral icterus. No injection or drainage. NECK: Supple, trachea midline. No JVD or lymphadenopathy. CARDIOVASCULAR: Irreg Irreg, tachycardic without murmurs, gallops, or rubs. RESPIRATORY: Breath sounds equal bilaterally. No accessory muscle use. GASTROINTESTINAL: Abdomen soft, non-tender, nondistended. MUSCULOSKELETAL: No cyanosis, or edema. BACK: Nontender without obvious deformity. No CVA tenderness. Results Procedures completed during hospitalization: None. - Impressions ITS Impressions Abdomen/Pelvis CT 08/28/18 00:00 CONCLUSION: 1. Abnormal bladder appearance and abnormal appearance of the perivesical soft tissues. 2. 5 mm nonobstructing stone in the lower pole collecting system of the right kidney. 3. Probably benign liver lesion. Recommend further characterization with elective outpatient contrast MRI 4. Small fat-containing umbilical hernia. Chest X-Ray 08/28/18 12:53 CONCLUSION: Right basilar subsegmental atelectasis. Myocardial Perfusion Scan Nuc Med 08/29/18 09:00 CONCLUSION: 1. Moderate stress-induced ischemia in the inferolateral wall. 2. Findings consistent with focal infarct in the apical wall. 3. Global hypokinesia with EF of 44%. Discharge Plan - Discharge Disposition Patient Disposition: 01 Discharge Home - Discharge Condition Condition: Stable - Discharge Order Discharge Orders: Discharge Order (Routine); Ordered 09/01/18 Ordered By: Bj Hobson - Physicians Team Primary Care Provider: Maday Us Attending Provider: Bj Hobson Other Providers: Bruce Pardo MD ; Lissa Alcaraz ; Teddy Schwarz DO
[2018-09-01] MEDS: Ramipril 2.5 MG Capsule PO SCH (08:51)
[2018-09-01] MEDS: Folic Acid 1 MG Tablet PO SCH (08:51)
[2018-09-01] MEDS: buPROPion 150 MG 12 HR Tablet PO SCH (08:51)
[2018-09-01] MEDS: guaiFENesin 600 MG ER Tablet PO SCH (08:51)
[2018-09-01] MEDS: Multivitamin/Minerals Therapeutic Tablet PO SCH (08:51)
--- NOTE | 2018-09-01 12:05 | P.PNCA ---
Subjective Interval history: No events overnight Heart rates controlled Medications and Allergies Allergies Allergy/AdvReac Type Severity Reaction Status Date / Time No Known Allergies Allergy Verified 08/28/18 10:50 Home Medications Medication Instructions Recorded Confirmed Type Multi Vitamin 1 tab PO DAILY 05/19/18 08/28/18 History albuterol sulfate [Ventolin HFA] 18 mg INHALATION PRN PRN 05/19/18 08/28/18 History apixaban [Eliquis] 5 mg PO BID 05/19/18 08/28/18 History atorvastatin 80 mg PO DAILY 05/19/18 08/28/18 History bupropion HCl 300 mg PO QAM 05/19/18 08/28/18 History citalopram 20 mg PO DAILY 05/19/18 08/28/18 History furosemide 20 mg PO DAILY 05/19/18 08/28/18 History montelukast 10 mg PO QPM 05/19/18 08/28/18 History omega-3 fatty acids-fish oil [Fish 2,400 mg PO DAILY 05/19/18 08/28/18 History Oil] potassium chloride 20 meq PO BID 05/19/18 08/28/18 History ramipril 2.5 mg PO BID 05/19/18 08/28/18 History Brioellipta Inh 100 mg INHALATION PRN 08/28/18 08/30/18 History calcium citrate-vitamin D3 600 mg PO DAILY 08/28/18 08/30/18 History Physical Exam Vital signs: Vital Signs 08/31/18 14:54 08/31/18 15:00 08/31/18 15:24 Temperature 97.4 F L Pulse Rate 94 H 88 84 Respiratory Rate 20 16 Blood Pressure 120/75 Pulse Oximetry 94 L 98 08/31/18 16:00 08/31/18 16:20 08/31/18 19:00 Temperature 97.8 F Pulse Rate 84 84 85 Respiratory Rate 20 20 Blood Pressure 120/78 Pulse Oximetry 96 08/31/18 19:15 08/31/18 20:00 08/31/18 21:00 Temperature 97.6 F Pulse Rate 84 84 88 Respiratory Rate 18 Blood Pressure 116/80 Pulse Oximetry 94 L 08/31/18 22:00 08/31/18 23:00 09/01/18 00:00 Temperature 98.0 F Pulse Rate 80 79 81 Respiratory Rate 20 Blood Pressure 125/90 Pulse Oximetry 95 09/01/18 01:00 09/01/18 02:00 09/01/18 03:00 Temperature Pulse Rate 77 78 87 Respiratory Rate Blood Pressure Pulse Oximetry 09/01/18 04:00 09/01/18 05:00 09/01/18 06:00 Temperature 97.5 F L Pulse Rate 76 81 69 Respiratory Rate 18 Blood Pressure 125/91 H Pulse Oximetry 95 09/01/18 07:30 09/01/18 08:00 09/01/18 08:48 Temperature 97.2 F L Pulse Rate 86 83 89 Respiratory Rate 16 18 Blood Pressure 155/98 H Pulse Oximetry 93 L 96 Intake & Output 08/31/18 09/01/18 09/01/18 18:59 06:59 18:59 Intake Total 590 / 590 480 / 480 Output Total 1250 / 1250 350 / 350 Balance -660 / -660 130 / 130 Weight 110 kg Intake: IV 10 / 10 Heparin/NS PF Inj 1,500 ML @ 0 10 / 10 mls/hr .ROUTE [facility] Rx#: [id number] Oral 480 / 480 480 / 480 Anesthesia Amount 100 / 100 Output: Urine 1250 / 1250 350 / 350 Other: # Voids 1 Date of Last Bowel Movement 08/31/18 08/31/18 # Bowel Movements 1 Narrative: GENERAL: Alert, NAD. SKIN: Warm and dry. HEAD: Normocephalic. EYES: No scleral icterus. No injection or drainage. NECK: Supple, trachea midline. No JVD or lymphadenopathy. CARDIOVASCULAR: Irreg Irreg, without murmurs, gallops, or rubs. RESPIRATORY: Breath sounds equal bilaterally. No accessory muscle use. GASTROINTESTINAL: Abdomen soft, non-tender, nondistended. MUSCULOSKELETAL: No cyanosis, or edema. BACK: Nontender without obvious deformity. No CVA tenderness. Results 08/28/18 13:00 08/28/18 13:00 Intake and Output 08/31/18 09/01/18 09/01/18 22:59 06:59 14:59 Intake Total 480 / 480 480 / 480 Output Total 1000 / 1000 350 / 350 Balance -520 / -520 130 / 130 Intake: Oral 480 / 480 480 / 480 Output: Urine 1000 / 1000 350 / 350 Other: # Voids 1 Date of Last Bowel Movement 08/31/18 # Bowel Movements 1 Weight 110 kg - Imaging and Cardiology Imaging: Impressions Myocardial Perfusion Scan Nuc Med 08/29/18 09:00 CONCLUSION: 1. Moderate stress-induced ischemia in the inferolateral wall. 2. Findings consistent with focal infarct in the apical wall. 3. Global hypokinesia with EF of 44%. Assessment and Plan - Assessment (1) Abnormal stress test Code(s): R94.39 - Abnormal result of other cardiovascular function study Status: Acute (2) Afib Code(s): I48.91 - Unspecified atrial fibrillation Status: Acute (3) HTN (hypertension) Code(s): I10 - Essential (primary) hypertension Status: Acute (4) Chest pain Code(s): R07.9 - Chest pain, unspecified Status: Acute (5) Gross hematuria Code(s): R31.0 - Gross hematuria Status: Acute - Plan 1) HTN Blood pressure stable 2) AFib Rates controlled Agree with restarting Eliquis 3) Abnormal stress test Cath showing mild CAD 4) Cardiovascularly stable to discharge today Follow up with Dr. Mccabe (4) Chest pain Qualifiers: Chest pain type: unspecified Qualified Code(s): R07.9 - Chest pain, unspecified
== END 2018-09-01 12:02 | disposition home or self-care (01) ==
LOC: PHED 10:39 → PHEDA 10:39 → PH3 16:24 → PHICU 08-29 13:02 → HCIS 08-31 10:33
PROVIDERS: ADMIT Hospitalist; ATTEND Hospitalist